=== PATIENT | female | born 1935 | race Caucasian/White ===

== ENCOUNTER 2018-06-21 15:26 | Emergency (ER) | payer MEDICARE ==
[2018-06-21 15:55] VITALS: BP 158/60
[2018-06-21] MEDS ORDERED: Acetaminophen TAB* 325 MG PO ONE (15:59)
--- NOTE | 2018-06-21 16:07 | UC ---
Shoulder Pain HPI - HPI Summary HPI Summary: C/O right shoulder pain after falling. Was holding onto railing and let go with left hand and fell to the right, landing on the right arm. - History of Current Complaint Chief Complaint: UCUpperExtremity Stated Complaint: RIGHT SHOULDER INJURY Time Seen by Provider: 06/21/18 15:53 Hx Obtained From: Patient Hx Last Menstrual Period: n/a Onset/Duration: Sudden Onset Timing: Constant Severity Initially: Severe Severity Currently: Severe Location Of Pain: Is Discrete @ - right shoulder/ upper arm Pain Intensity: 9 Character: Sharp, Aching, Throbbing Aggravating Factor(s): Movement Alleviating Factor(s): Rest Associated Signs And Symptoms: Negative: Weakness, Numbness/Tingling Related History: Dominant Hand Right - Allergies/Home Medications Allergies/Adverse Reactions: Allergies Allergy/AdvReac Type Severity Reaction Status Date / Time NSAIDs avoided AdvReac Unknown Uncoded 06/21/18 15:57 Reaction Details Home Medications: Home Medications Cholecalciferol TAB* [Vitamin D TAB*] 1,000 units PO DAILY 06/21/18 [History Confirmed 06/21/18] Furosemide TAB* [Lasix TAB*] 40 mg PO BID 06/21/18 [History Confirmed 06/21/18] Insulin Glargine,Hum.rec.anlog [Lantus Solostar 5x3 ML PENS] 15 ml SUBCUT DAILY 06/21/18 [History Confirmed 06/21/18] Lidocaine 5 gm TP BID 06/21/18 [History Confirmed 06/21/18] [place]-3 Fatty Acids/Fish Oil [Fish Oil 1,000 mg Capsule] 1,000 mg PO DAILY 06/21 [History Confirmed 06/21/18] Omeprazole CAP* [Prilosec CAP* 20 MG] 20 mg PO DAILY 06/21/18 [History Confirmed 06/21/18] Ropinirole HCl 2 tab PO BEDTIME 06/21/18 [History Confirmed 06/21/18] glipiZIDE [Glipizide ER] 2.5 mg PO DAILY 06/21/18 [History Confirmed 06/21/18] traMADol TAB* [Ultram*] 50 mg PO Q8HR PRN 06/21/18 [History Confirmed 06/21/18] PMH/Surg Hx/FS Hx/Imm Hx Endocrine History: Diabetes, Dyslipidemia Cardiovascular History: Hypertension GI/ History: Gastroesophageal Reflux - Surgical History Surgical History: Yes Surgery Procedure, Year, and Place: BILATERAL KNEE REPLACEMENTS; LEFT SHOULDER ROTATOR CUFF REPAIR - Family History Known Family History: Positive: Cardiac Disease, Hypertension, Diabetes, Other - mom had breast CA - Social History Occupation: Retired Lives: With Family Alcohol Use: None Substance Use Type: None Smoking Status (MU): Never Smoked Tobacco Review of Systems All Other Systems Reviewed And Are Negative: Yes Musculoskeletal: Positive: Arthralgia - right shoulder Is Patient Immunocompromised?: No Physical Exam Triage Information Reviewed: Yes Appearance: Well-Appearing, Well-Nourished, Pain Distress - Mild Vital Signs: Initial Vital Signs Temp 97.6 F 06/21/18 15:49 Pulse 77 06/21/18 15:49 Resp 16 06/21/18 15:49 BP 158/60 06/21/18 15:49 Pulse Ox 98 06/21/18 15:49 Vital Signs Reviewed: Yes Eyes: Positive: Conjunctiva Clear Neck exam: Normal Respiratory Exam: Normal Cardiovascular: Positive: RRR, Murmur:Sys:Grade _?_/ - 2/6 Musculoskeletal: Positive: Strength Limited @ - right shoulder flexion, ROM Limited @ - right shoulder not tested with pain., Other: - tender on the A/C joint and the humeral head. Neurological Exam: Normal Psychological Exam: Normal Skin Exam: Normal Procedures - Joint Reduction Left Joint Reduction Site: shoulder (R) - external rotation technique Conscious Sedation: No Reduction Attempts: 1 Pre-Procedure NV Exam: Yes Post Joint Reduction Film: joint reduced Re-Evaluation - Re-Evaluation First Eval Re-Evaluation Time: 16:55 Change: Improved - Pain and range of motion is better. Shoulder Course/Dx - Differential Dx/Diagnosis Differential Diagnosis/HQI/PQRI: AC Separation, Dislocation, Fracture (Closed), Rotator Cuff Injury Provider Diagnosis: Dislocation of right shoulder joint Discharge - Sign-Out/Discharge Documenting (check all that apply): Patient Departure All imaging exams completed and their final reports reviewed: Yes - Discharge Plan Condition: Stable Disposition: HOME Patient Education Materials: Shoulder Dislocation (ED) Referrals: Peyton Scales MD [Primary Care Provider] - Kang Ingram MD [Medical Doctor] - 4 Days (follow up shoulder dislocation) Additional Instructions: Use the sling for comfort. Increase activity as tolerated. - Billing Disposition and Condition Condition: STABLE Disposition: Home
== END 2018-06-21 17:29 | disposition home or self-care (01) ==
LOC: UCCORT 15:26
DX: S43.004A Unspecified dislocation of right shoulder joint, initial encounter (principal); W19.XXXA Unspecified fall, initial encounter; Y92.9 Unspecified place or not applicable
CPT/HCPCS: 23650; 99213; A9270-GY; G0463

== ENCOUNTER 2018-08-20 05:43 | Inpatient (IN) | payer MEDICARE ==
--- NOTE | 2018-08-14 16:58 | HP ---
PREOPERATIVE HISTORY AND PHYSICAL: DATE OF ADMISSION/SURGERY: 08/20/18 DATE OF OFFICE VISIT: 08/14/18 ATTENDING SURGEON: Dr. John Nye.* (DICTATED BY LESLIE MARTINEZ) PROCEDURE: Right total shoulder reverse. CHIEF COMPLAINT: Right shoulder pain. HISTORY OF PRESENT ILLNESS: Tiarra is an 83-year-old female who presents to the clinic with right shoulder pain due to [id number] glenohumeral joint osteoarthritis as well as rotator cuff tearing. She has failed conservative measures and therefore agreed to undergo a right total shoulder reverse with Dr. Nye on 08/20/18. PAST MEDICAL HISTORY: Hypertension, diabetes, osteoarthritis, high cholesterol , stage 3 kidney disease, macular degeneration, carotid artery stenosis, osteopenia, thyroid cyst, chronic leg tremors, and dysphagia. PAST SURGICAL HISTORY: Left shoulder surgery, left knee scope, bilateral knee replacements, and tonsillectomy. The patient denies prior complications with anesthesia. MEDICATIONS: 1. Glipizide ER 2.5 mg 1 by mouth daily. 2. Lipitor 80 mg 1 by mouth at bedtime. 3. Cyclobenzaprine 10 mg 1 by mouth 3 times a day as needed. 4. Lisinopril 2.5 mg 1 by mouth daily. 5. Furosemide 40 mg 1 by mouth daily. 6. Aspirin 81 mg 1 by mouth every day. 7. Vitamin D 1000 units 1 by mouth daily. 8. Fish oil 1000 mg 1 by mouth twice a day. 9. Ropinirole 0.25 mg 2 tablets by mouth at bedtime. 10. Lantus SoloSTAR 100 units per mL sliding scale 3 times a day. 11. Omeprazole 20 mg 1 by mouth every day. 12. Tramadol 50 mg 1 by mouth every 8 hours as needed for pain. 13. Lidocaine 5% apply 2 g to hip twice a day. ALLERGIES: No known drug allergies. FAMILY HISTORY: Cancer. Denies family history of DVT or PE. SOCIAL HISTORY: She is a former smoker, quit when she was a teenager. She denies alcohol or illegal drug use. REVIEW OF SYSTEMS: A 14-point review of systems was reviewed with the patient. Positive for current complaint, otherwise negative. Denies fever, chills, chest pain, shortness of breath, history of bleeding disorder, history of DVT or PE. Denies history of MRSA. PHYSICAL EXAMINATION GENERAL: An 83-year-old well-developed, well-nourished female, in no acute distress. VITAL SIGNS: Height 58, weight 169, pulse 74, blood pressure 126/70, respiratory rate 20, BMI 35.3. HEENT: Normocephalic, atraumatic. PERRLA. Throat clear. NECK: Supple. PULMONARY: Lungs are clear to auscultation bilaterally. No wheezing, rhonchi, or rales. CARDIO: Regular rate and rhythm. S1, S2. No murmurs, gallops, or rubs. No edema. ABDOMEN: Positive bowel sounds. Soft, nontender. NEURO: Alert and oriented x3. Cranial nerves grossly intact. MUSCULOSKELETAL: Right upper extremity: Skin is intact. No warmth or erythema. Forward flexion to 130, abduction to 80, external rotation to 40, internal rotation to lateral hip. Full range of motion of the elbow, wrist, and hand. +4/5 strength to rotator cuff testing with pain. Positive impingement, Speed, Bullock-Rafa, [place]. +2 radial pulse. Sensation intact to light touch distally. DIAGNOSTIC STUDIES: CT of the right shoulder revealed [id number] glenohumeral joint osteoarthritis and rotator cuff tearing. IMPRESSION: Right shoulder severe glenohumeral joint osteoarthritis and rotator cuff tear. PLAN: The patient is scheduled to undergo a right total shoulder reverse with Dr. Nye on 08/20/18. She will follow up 10 to 14 days postop for followup and suture removal. Percocet will be used for postop pain medication. She has been cleared by her primary care physician on 08/08/18 and is ready to undergo surgery. LESLIE MARTINEZ [id number]/[facility] #: [id number] [facility]
[~2018-08-20 05:43] MED LIST: Buffered Lidocaine 1% SYRIN* 1 ML/SYRINGE INTRADERM ONE
--- OUTSIDE RECORDS SUMMARY | 2018-08-20 05:46 | XMS REPORT | Continuity of Care Document ---
:1935 External Reference #:[id number] Author Name Peyton Scales MD Address [address] [place] [place] [address] Care Team Providers Name Role Phone Peyton Scales MD Care Team Information [employer] Unavailable Peyton Scales MD Primary Care Physician Unavailable Payers Date Identification Numbers Payment Provider Subscriber Effective: 2001 Policy Number: [id number] Medicare Tiarra Christensen PayID: [id number] [address] [place] [address] Policy Number: [id number] [facility] Tiarra Christensen PayID: [id number] [address] [place] [address] Expires: 2017 Policy Number: [facility] Tiarra Christensen [id number] PayID: [id number] [address] [place] [address] Advance Directives Description No Information Available Problems Date Description Provider Status Onset: 05/10/2016 Chronic kidney disease stage 3 Peyton Scales MD Active Onset: 05/10/2016 Closed fracture of thoracic vertebra Peyton Scales MD Active without spinal cord injury Onset: 01/25/2017 Dysphagia Hair Davis MD Active Onset: 01/25/2017 History of polyp of colon Hair Davis MD Active Onset: 02/13/2017 Prosthetic arthroplasty of shoulder Devon Bates M.D. 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 Onset: 09/18/2017 Mixed hyperlipidemia Peyton Scales MD Active Onset: 09/18/2017 Essential tremor Peyton Scales MD Active Onset: 12/04/2017 Lumbosacral spondylosis without Peyton Scales MD Active myelopathy Onset: 12/04/2017 Non-toxic nodular goiter Peyton Scales MD Active Onset: 12/04/2017 Carotid artery occlusion Peyton Scales MD Active Onset: 12/04/2017 Heart murmur Peyton Scales MD Active Onset: 05/10/2016 Abnormal involuntary movement Peyton Scales MD Inactive Inactive: 12/04/2017 Onset: 05/10/2016 Essential hypertension Peyton Scales MD Inactive Inactive: 12/04/2017 Onset: 05/10/2016 Type 2 diabetes mellitus Peyton Scaels MD Inactive Inactive: 12/04/2017 Onset: 05/10/2016 Hyperlipidemia Peyton Scales MD Inactive Inactive: 12/04/2017 Onset: 06/22/2003 Surgical suture Resolved Resolved: 12/04/2017 Onset: 06/22/2003 Closed fracture proximal humerus, greater tuberosity Resolved Resolved: 12/04/2017 Onset: 12/12/2016 Shoulder joint pain Devon Bates M.D. Resolved Resolved: 12/04/2017 Onset: 12/12/2016 Traumatic arthropathy of the shoulder Devon Bates M.D. 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 Resolved: 12/04/2017 Family History Date Family Member(s) Observation Comments General Non Contributory : (age 71 Years) Father due to Kidney Disease Father Stroke : (age 61 Years) Mother due to Breast Cancer Mother Breast Cancer Children 7 all living Siblings 3 : (age 76 Years) First Brother due to Cancer First Brother Diabetes First Brother Leukemia Second Brother Diabetes Second Brother Leukemia Social History Type Date Description Comments Sex Unknown Marital Status Lives With Senior Housing Lives With Son Home Environment Lives With Son Diet Patient is on a diabetic diet Occupation Retired Work Status Retired ADL's/IADL's Dependent with all ADL's Tobacco Use Start: Unknown Never Smoked Cigarettes Smokeless Tobacco Never Used Smokeless Tobacco ETOH Use Denies alcohol use Tobacco Use Start: Unknown Patient has never smoked Recreational Drug Use Denies Drug Use Smoking Status Reviewed: 08/08/18 Patient has never smoked Allergies, Adverse Reactions, Alerts Description No Known Drug Allergies Medications Medication Date Status Form Strength Qnty SIG Indications Ordering Provider Tramadol HCL 09/19/19 Active Tablets 50mg 90tab take one Gagen, 18 s tablet by Malena mouth every 8 e, MS, 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 CN Reference # [id number] Omeprazole 08/21/19 Active Capsules 20mg 90cap 1 tab by [email or web address] Arndt 18 DR s mouth every MD Ryan day every morning Caretouch 05/21/20 Active Misc Twist 33 100un use to check Yordy, Twist Lancets 17 its fs and twice MD Peyton 33G a day True Metrix 05/21/20 Active Kit w/Device 2unit Use to BS as E08.21 Litvin, Go Blood 17 s ordered Maureen, Glucose Meter M.D. Pen [place] 02/20/20 Active Misc 31G X 8 100un use with Litalycia, 11/13" 17 mm its insulin Maureen, device as M.D. directed Lantus 02/19/20 Active Solution 100Unit/M 15ml 30 units E08.21 Litalycia Solostar 17 Pen-Injec L subcutaneous Maureen, t every day M.D. True Metrix 01/25/20 Active Strips 100un test E08.21 Gagen, Self 17 its three-four Malena Monitoring times a day e, MS, Blood Glucose [employer]OLOGY LECTURER-C, Strips CNM Atorvastatin 01/24/20 Active Tablets 80mg 90tab 1 by mouth Gagen, Calcium 17 s tab daily Malena e, MS, BIOLOGY LECTURER-C, CNM BD Insulin 05/29/20 Active Misc 30G X 100un administer Yordy, Syringe/U-100 16 1/2" 0.5 its insulin as MD Peyton /0.5ML/30G X ML directed 1/2" Lisinopril Active Tablets 2.5mg 30tab 1 tab by Mike, 00 s mouth every Andras, day M.D. Furosemide Active Tablets 40mg 90tab 1 po bid Unknown 00 s Baby Aspirin Active Chewtabs 81mg 1 po qd Unknown 00 Vitamin D Active Tablets 1000Unit 1 tab two Unknown 00 times daily. Fish Oil Active Capsules 1000mg 1 every day Unknown 00 Ropinirole Active Tablets 0.25mg 180ta 2 tab by Gagsatya HCL 00 bs mouth at [facility] bedtime e, MS, BIOLOGY LECTURER-C, CNM Lidocaine 12/05/19 Hx Ointment 5% 100gm apply 2 grams Yordy, 18 - two times MD Peyton 08/08/19 once in 19 morning and once in evening on hip areas Glipizide ER 05/21/20 Hx Tablets 2.5mg 90tab 1 by mouth E08.21 Kade 17 - ER 24HR s every day [facility] 08/08/19 e, MS, 19 BIOLOGY LECTURER-C, CNM Omeprazole 01/26/20 Hx Capsules 40mg 30cap 1 tab by R13.10 Hair 17 - s mouth every MD Ryan 09/19/19 day every 18 morning Oxycodone HCL 01/08/20 Hx Tablets 10mg 40tab 1 by mouth M12.512 Paulo 17 - s mario 4-6 Devon, 02/19/20 hour as Lloyd 17 needed postop pain Sure Comfort 10/22/19 Hx 0.5ml 100un Administer Yordy 17 - its Insulin as MD Peyton 01/08/20 Directed 17 Gabapentin 02/08/20 Hx Capsules 100mg 270ca 1 by mouth M62.830 Joshua 16 - ps three times a Mehul Limon, 12/13/19 day DO 17 Home Care 02/03/20 Hx please M17.10 [facility] 16 - evaluate for MD Peyton Unknown PT/OT W18.30xA M54.5 Ropinirole HCL 02/02/2016 - Hx Tablets 0.25mg 30tabs one 2 Yordy, 12/12/2016 hours MD Peyton before bedtime Tizanidine HCL 01/31/2016 - Hx Tablets 2mg 60tabs 1 tab by Yordy, 02/09/2016 mouth two MD Peyton times a day as needed for muscle spasm/pain Cyclobenzaprine HCL 01/30/2016 - Hx Tablets 10mg 90tabs 1 by mouth Yordy, Unknown three MD Peyton times a day as needed muscle spasms Tramadol HCL 01/07/2012 - Hx Tablets 50mg 50tabs 1 tab tid Elizabeth, Luther Merrill MD [place] - Hx Tablets 5-10mg po qd Unknown 11/20/2013 Zetia - Hx Tablets 10mg 90tabs 1 po qd Unknown Unknown Alendronate Sodium - Hx Tablets 35mg 1 po qweek Unknown 11/20/2013 Avastin - Hx Solution 100mg/4ML right Unknown 11/20/2013 eye/shot Humulin R - Hx Solution 100Unit/M sliding Unknown Unknown L scale Glipizide - Hx Tablets 5mg 90tabs 1 by mouth Yordy, Unknown every day MD Peyton Lipitor - Hx Tablets 80mg 90tabs 1 tab by Yordy, 02/09/2016 mouth MD Peyton every night Glucosamine - Hx Capsules 250-200mg Unknown Chondroitin Unknown Humulin N - Hx Suspension 100Unit/M 30ml 24 units Yordy, Unknown L every MD Peyton morning & 20 units every night Cyclobenzaprine HCL - Hx Tablets 5mg 1 by mouth Unknown 01/30/2016 three times a day as needed muscle spasm Oxycodone-Acetamino - Hx Tablets 2.5-325mg Unknown phen Unknown Atorvastatin - Hx Tablet 1 po qd Unknown Calcium 01/23/2017 Tizanidine HCL - Hx Tablets 2mg Unknown 12/12/2016 Oxycodone-Acetamino - Hx Tablets 2.5-325mg Unknown phen 12/12/2016 Gabapentin - Hx Capsules 100mg Unknown 01/07/2017 Tizanidine HCL - Hx Tablets 2mg Unknown 01/07/2017 Oxycodone-Acetamino - Hx Tablets 2.5-325mg Unknown phen 01/07/2017 Oxycodone HCL - Hx Tablets 10mg Unknown Unknown Tramadol - Hx Tablets 37.5-325m 60tabs take one Yordy, Hydrochloride/Aceta 09/18/2017 g tablet by MD Peyton minophen mouth every 12 hours (maximum daily dose=2) Immunizations CPT Code Status Date Vaccine Lot # [id number] Given 03/05/2018 Influenza High Dose [id number] Vital Signs Date Vital Result Comment 08/08/2018 12:54pm BP Systolic Sitting Left Arm 132 mmHg BP Diastolic Sitting Left Arm 68 mmHg Body Temperature 99.4 F Heart Rate 69 /min reg Respiratory Rate 18 /min Height 57 inches 4'9" Weight 171.00 lb BMI (Body Mass Index) 37.0 kg/m2 BSA (Body Surface Area) 1.68 m2 [place] body weight in kilograms 45 kg O2 % BldC Oximetry 96 % ra 03/05/2018 2:54pm BP Systolic Sitting Left Arm 134 mmHg BP Diastolic Sitting Left Arm 68 mmHg Body Temperature 99.2 F Arthur 98.4 Heart Rate 52 /min reg Respiratory Rate 18 /min Height 57 inches 4'9" Weight 180.00 lb BMI (Body Mass Index) 38.9 kg/m2 BSA (Body Surface Area) 1.72 m2 [place] body weight in kilograms 45 kg O2 % BldC Oximetry 95 % ra 02/19/2018 3:36pm BP Systolic Sitting Left Arm 145 mmHg BP Diastolic Sitting Left Arm 83 mmHg Heart Rate 57 /min Respiratory Rate 18 /min Height 57 inches 4'9" Weight 181.00 lb BMI (Body Mass Index) 39.2 kg/m2 BSA (Body Surface Area) 1.72 m2 [place] body weight in kilograms 45 kg O2 % BldC Oximetry 97 % 12/04/2017 2:59pm BP Systolic Sitting Right Arm 152 mmHg 120/62 manual cuff. BP Diastolic Sitting Right Arm 77 mmHg 120/62 manual cuff. BP Systolic Sitting Left Arm 112 mmHg manual cuff. BP Diastolic Sitting Left Arm 60 mmHg manual cuff. Body Temperature 98.4 F Heart Rate 59 /min Height 57 inches 4'9" Weight 182.00 lb BMI (Body Mass Index) 39.4 kg/m2 BSA (Body Surface Area) 1.73 m2 [place] body weight in kilograms 45 kg O2 % BldC Oximetry 98 % ra 09/18/2017 1:04pm BP Systolic Sitting Right Arm 146 mmHg BP Diastolic Sitting Right Arm 75 mmHg Heart Rate 60 /min Respiratory Rate 12 /min Height 57 inches 4'9" Weight 188.00 lb BMI (Body Mass Index) 40.7 kg/m2 BSA (Body Surface Area) 1.75 m2 [place] body weight in kilograms 45 kg 08/21/2017 3:37pm BP Systolic Sitting Left Arm 136 mmHg BP Diastolic Sitting Left Arm 78 mmHg Heart Rate 59 /min Respiratory Rate 16 /min Height 57 inches 4'9" Weight 187.00 lb BMI (Body Mass Index) 40.5 kg/m2 BSA (Body Surface Area) 1.75 m2 [place] body weight in kilograms 45 kg 07/17/2017 12:57pm BP Systolic 137 mmHg BP Diastolic 69 mmHg Body Temperature 86.7 F Heart Rate 50 /min Respiratory Rate 16 /min Height 57 inches 4'9" Weight 187.00 lb BMI (Body Mass Index) 40.5 kg/m2 BSA (Body Surface Area) 1.75 m2 [place] body weight in kilograms 45 kg 06/19/2017 1:57pm BP Systolic Sitting Left Arm 119 mmHg BP Diastolic Sitting Left Arm 62 mmHg Heart Rate 53 /min Respiratory Rate 16 /min Height 57 inches 4'9" Weight 186.00 lb BMI (Body Mass Index) 40.2 kg/m2 BSA (Body Surface Area) 1.74 m2 [place] body weight in kilograms 45 kg 05/22/2017 3:59pm BP Systolic Sitting Left Arm 124 mmHg BP Diastolic Sitting Left Arm 80 mmHg Heart Rate 64 /min Respiratory Rate 16 /min Height 57 inches 4'9" Weight 185.00 lb BMI (Body Mass Index) 40.0 kg/m2 BSA (Body Surface Area) 1.74 m2 [place] body weight in kilograms 45 kg 05/21/2017 10:06am BP Systolic 138 mmHg BP Diastolic 70 mmHg Height 57 inches 4'9" Weight 187.50 lb BMI (Body Mass Index) 40.6 kg/m2 BSA (Body Surface Area) 1.75 m2 [place] body weight in kilograms 45 kg 02/18/2017 10:18am BP Systolic 98 mmHg BP Diastolic 66 mmHg Height 57 inches 4'9" Weight 184.00 lb BMI (Body Mass Index) 39.8 kg/m2 BSA (Body Surface Area) 1.74 m2 [place] body weight in kilograms 45 kg 2017 9:53am BP Systolic 132 mmHg BP Diastolic 80 mmHg Height 57 inches 4'9" Weight 188.00 lb BMI (Body Mass Index) 40.7 kg/m2 BSA (Body Surface Area) 1.75 m2 [place] body weight in kilograms 45 kg 01/25/2017 11:42am BP Systolic Sitting Left Arm 122 mmHg BP Diastolic Sitting Left Arm 78 mmHg Heart Rate 56 /min Respiratory Rate 16 /min Height 57 inches 4'9" Weight 189.00 lb BMI (Body Mass Index) 40.9 kg/m2 BSA (Body Surface Area) 1.76 m2 [place] body weight in kilograms 45 kg 01/23/2017 9:16am BP Systolic Sitting Right Arm 132 mmHg BP Diastolic Sitting Right Arm 61 mmHg Body Temperature 97.6 F Heart Rate 55 /min Respiratory Rate 16 /min Height 57 inches 4'9" Weight 192.00 lb BMI (Body Mass Index) 41.5 kg/m2 BSA (Body Surface Area) 1.77 m2 [place] body weight in kilograms 45 kg O2 Saturation Level with Exercise 97 % 01/08/2017 12:59pm BP Systolic Sitting Left Arm 162 mmHg Arthur 110/72 BP Diastolic Sitting Left Arm 70 mmHg Arthur 110/72 Body Temperature 96.7 F Heart Rate 66 /min Height 57 inches 4'9" Weight 185.00 lb BMI (Body Mass Index) 40.0 kg/m2 BSA (Body Surface Area) 1.74 m2 [place] body weight in kilograms 45 kg O2 % BldC Oximetry 97 % 01/07/2017 10:22am BP Systolic Sitting Right Arm 144 mmHg BP Diastolic Sitting Right Arm 75 mmHg Heart Rate 48 /min Height 57 inches 4'9" Weight 189.00 lb BMI (Body Mass Index) 40.9 kg/m2 BSA (Body Surface Area) 1.76 m2 [place] body weight in kilograms 45 kg 12/03/2016 3:04pm BP Systolic Sitting Left Arm 134 mmHg BP Diastolic Sitting Left Arm 78 mmHg Heart Rate 60 /min Height 57.5 inches 4'9.50" Weight 184.00 lb BMI (Body Mass Index) 39.1 kg/m2 BSA (Body Surface Area) 1.75 m2 [place] body weight in kilograms 45 kg 11/12/2016 11:23am BP Systolic Sitting Left Arm 132 mmHg BP Diastolic Sitting Left Arm 80 mmHg Body Temperature 98.0 F Heart Rate 64 /min Respiratory Rate 18 /min Height 59 inches 4'11" Weight 181.00 lb BMI (Body Mass Index) 36.6 kg/m2 BSA (Body Surface Area) 1.77 m2 [place] body weight in kilograms 45 kg O2 % BldC Oximetry 98 % 09/17/2016 2:24pm BP Systolic 102 mmHg BP Diastolic 70 mmHg Heart Rate 64 /min Height 59 inches 4'11" Weight 178.00 lb BMI (Body Mass Index) 35.9 kg/m2 BSA (Body Surface Area) 1.76 m2 05/10/2016 1:16pm BP Systolic Sitting Right Arm 132 mmHg BP Diastolic Sitting Right Arm 76 mmHg Heart Rate 82 /min Height 59 inches 4'11" Weight 189.06 lb BMI (Body Mass Index) 38.2 kg/m2 BSA (Body Surface Area) 1.80 m2 O2 % BldC Oximetry 94 % 02/10/2016 9:24am BP Systolic 121 mmHg BP Diastolic 78 mmHg Heart Rate 80 /min Height 59 inches 4'11" Weight 187.00 lb BMI (Body Mass Index) 37.8 kg/m2 BSA (Body Surface Area) 1.79 m2 [place] body weight in kilograms 45 kg 02/08/2016 8:52am BP Systolic 168 mmHg BP Diastolic 86 mmHg Heart Rate 72 /min Height 58.5 inches 4'10.50" Weight 187.00 lb BMI (Body Mass Index) 38.4 kg/m2 BSA (Body Surface Area) 1.78 m2 01/30/2016 9:44am BP Systolic 144 mmHg BP Diastolic 70 mmHg Heart Rate 84 /min Height 58.5 inches 4'10.50" Weight 193.00 lb with Cam walker BMI (Body Mass Index) 39.6 kg/m2 BSA (Body Surface Area) 1.81 m2 11/18/2013 2:01pm BP Systolic Sitting Right Arm 122 mmHg BP Diastolic Sitting Right Arm 78 mmHg Height 58.5 inches 4'10.50" Weight 188.00 lb BMI (Body Mass Index) 38.6 kg/m2 BSA (Body Surface Area) 1.79 m2 11/19/2012 2:36pm Height 58 inches 4'10" Weight 192.00 lb 11/13/2011 10:30am Height 57.5 inches 4'9.50" Weight 191.00 lb 11/23/2010 8:31am BP Systolic Sitting Right Arm 107 mmHg BP Diastolic Sitting Right Arm 58 mmHg Heart Rate 53 /min Respiratory Rate 16 /min Height 60 inches 5'0" Weight 182.00 lb BMI (Body Mass Index) 35.5 kg/m2 Results Test Date Facility Test Result H/L Range Note Urine Dipstick 08/08/2018 [facility] Ua Color yelow Yellow Ua Clarity clear Clear Ua Leuko 1+ High Negative Ua Nitrite negative Negative Ua Urobilinogen negative Low 0.2 - 1.0 E.U./dL Ua Protein negative Negative Ua PH 6.0 Low 6.5-7.5 Ua Blood negative Negative Ua Specific [place] 1.020 1.010-1.030 Ua Ketones negative Negative Ua Bilirubin negative Negative Ua Glucose negative Negative Comprehensive Metabolic 06/30/2018 [facility] Glucose 78 mg/dL N 74-106 1 Panel [address] [place] [address] [phone] BUN 28 mg/dL High 7-18 Creatinine 1.7 mg/dL High 0.6-1.3 Glom Filtration Rate, Estimate 31 mL/min >60 If 37 mL/min >60 2 BUN/Creat 16.4 ratio Sodium 144 mmol/L N 136-145 Potassium 4.1 mmol/L N 3.5-5.1 Chloride 105 mmol/L N 98-107 Carbon Dioxide 33 mmol/L High 21-32 Anion Gap 6 mEq/L Low 8-16 Calcium 9.1 mg/dL N 8.5-10.1 Total Protein 7.8 g/dL N 6.4-8.2 Albumin 3.1 g/dL Low 3.4-5.0 Globulin 4.7 g/dL High 1.9-4.3 Alb/Glob 0.7 ratio Bilirubin,Total 0.5 mg/dL N 0.2-1.0 Sgot/Ast 17 U/L N 15-37 SGPT/Alt 17 U/L N 12-78 Alkaline Phosphatase 121 U/L High 45-117 LDL Cholesterol Profile 06/30/2018 [facility] Cholesterol 137 mg/dL <200 3 [address] [place], [place] [id number] [phone] Triglycerides 104 mg/dL <150 4 HDL Cholesterol 47 mg/dL >40 5 LDL-Cholesterol 69 mg/dL < 100 6 CBC W/Automated Diff 06/30/2018 [facility] White Blood 8.1 K/uL N 3.1-10.[address] [place] [address] [phone] Red Blood Count 4.37 M/uL N 3.90-5.40 Hemoglobin 12.8 gm/dL N 11.6-15.8 Hematocrit 39.3 % N 36.0-46.1 Mean Cell Volume 89.9 fl N 80.9-99.0 Mean Corpuscular HGB 29.3 pg N 25.9-32.7 Mean Corpuscular HGB Conc 32.6 g/dL N 30.8-34.3 Platelet Count 296 K/uL N 155-360 Red Cell Distri Width SD 50.4 fl High 36-47 Red Cell Distri Width %CV 15.6 % High 11.7-14.4 Mean Platelet Volume 9.4 fL N 8.9-12.4 Neut% 63.9 % N 40.4-72.8 Lymph % 23.9 % N 20.0-42.0 [place] % 8.3 % N 4.3-13.2 Eo% 3.0 % N 0.0-6.6 Bas% 0.9 % N 0.0-1.1 Neut# 5.19 K/uL N 1.8-7.0 Lymph # 1.94 K/uL N 1.0-4.0 [place] # 0.67 K/uL N 0.3-0.9 Eos # 0.24 K/uL N 0.0-0.5 Baso # 0.07 K/uL N 0.0-0.1 Laboratory test 06/30/2018 [facility] Vitamin 40.4 30.0-100.0 [address] D,25-Hydroxy ng/[place] [address] [phone] Glycohemoglobin 06/30/2018 [facility] Glycohemoglobin 7.2 % High 4.2-6.[address] (A1c) [place] [address] [phone] eAG 160 mg/dL LDL Cholesterol 02/25/2018 [facility] Cholesterol 135 mg/dL <200 9, [address] [place] [address] [phone] Triglycerides 103 mg/dL <150 11 HDL Cholesterol 41 mg/dL >40 12 LDL-Cholesterol 73 mg/dL < 100 13 Glycohemoglobin 02/25/2018 [facility] Glycohemoglobin 7.9 % High 4.2-6.3 14 A1c [address] [facility] (A1c) [place] [address] [phone] eAG 180 mg/dL Laboratory test 02/25/2018 [facility] Thyroid Stim 4.11 uIU/mL N 0.30-4.20 finding [address] [facility] [place] [address] [phone] Free T4 1.01 ng/dL N 0.76-1.46 LDL Cholesterol 09/25/2017 [facility] Cholesterol 159 mg/dL <200 15, 16 Profile [address] [place] [address] [phone] Triglycerides 111 mg/dL <150 17 HDL Cholesterol 50 mg/dL >40 18 LDL-Cholesterol 87 mg/dL < 100 19 Ua RFX Micro & Culture 06/19/2017 [facility] Urine Color YELLOW Yellow 20 II [address] [place] [address] [phone] Urine Clarity CLEAR Clear Urine Glucose - Dipstick NEGATIVE mg/dL Negative Urine Bilirubin - Dipstick NEGATIVE Negative Urine Ketone NEGATIVE mg/dL Negative Urine Specific [place] 1.010 N 1.010-1.030 Urine Blood NEGATIVE Negative Urine PH 5.0 Low 6.5-7.5 Urine Protein - Dipstick NEGATIVE mg/dL Negative Urine Urobilinogen - Dipstick 0.2 E.U./dL N 0.2-1.0 Urine Nitrite - Dipstick NEGATIVE Negative Urine Leuk Esterase NEGATIVE Negative Source: URINE, CLEAN CAT <SEE NOTE> 21 Urine Culture 06/19/2017 [facility] Urine Culture URETHRAL VERNON [address] [place] [address] [phone] Quantity 10,000 - 50,000 <SEE NOTE> 22 Hgb Bld-mCnc 01/16/2017 N2N/CCD Import Hgb Bld-mCnc 10.1 Low 11.6-15.8 MCH RBC Qn Auto 01/16/2017 N2N/CCD Import MCH RBC Qn Auto 30.3 25.9- 32.7 MCHC RBC 01/16/2017 N2N/CCD Import MCHC RBC 32.6 30.8-34.3 Auto-mCnc Auto-mCnc MCV RBC Auto 01/16/2017 N2N/CCD Import MCV RBC Auto 93.1 80.9-99.0 PMV Bld Auto 01/16/2017 N2N/CCD Import PMV Bld Auto 10.3 8.9-12.4 Platelets 01/16/2017 N2N/CCD Import Platelets 234 150-400 [#/volume] in [#/volume] in Blood by Blood by Automated count Automated count Potassium 01/16/2017 N2N/CCD Import Potassium 4.5 3.5-5.1 SerPl-sCnc SerPl-sCnc RBC # Bld Auto 01/16/2017 N2N/CCD Import RBC # Bld Auto 3.33 Low 3.90- 5.40 RDW RBC Auto-Rto 01/16/2017 N2N/CCD Import RDW RBC Auto-Rto 14.2 11.7- 14.4 Sodium SerPl-sCnc 01/16/2017 N2N/CCD Import Sodium 140 136-145 SerPl-sCnc WBC # Bld Auto 01/16/2017 N2N/CCD Import WBC # Bld Auto 6.5 # 3.1-10.7 Anion Gap 01/16/2017 N2N/CCD Import Anion Gap 7 Low 8-16 SerPl-sCnc SerPl-sCnc CBC 01/16/2017 [facility] White Blood 6.5 K/uL 3.1-10.[address] Count [place], [place] [id number] [phone] Red Blood Count 3.33 M/uL Low 3.90-5.40 Hemoglobin 10.1 gm/dL Low 11.6-15.8 Hematocrit 31.0 % Low 36.0-46.1 Mean Cell Volume 93.1 fl N 80.9-99.0 Mean Corpuscular HGB 30.3 pg N 25.9-32.7 Mean Corpuscular HGB Conc 32.6 g/dL N 30.8-34.3 Platelet Count 234 K/uL N 150-400 Red Cell Distri Width %CV 14.2 % N 11.7-14.4 Mean Platelet Volume 10.3 fL N 8.9-12.4 Basic Metabolic Panel 01/16/2017 [facility] Glucose 246 mg/dL High 74-[address] [place], [place] [id number] [phone] BUN 34 mg/dL High 7-18 Creatinine 2.0 mg/dL High 0.6-1.3 Glom Filtration Rate, Estimate 26 mL/min >60 If 31 mL/min >60 24 BUN/Creat 17.0 ratio Sodium 140 mmol/L N 136-145 Potassium 4.5 mmol/L N 3.5-5.1 Chloride 104 mmol/L N 98-107 Carbon Dioxide 29 mmol/L N 21-32 Anion Gap 7 mEq/L Low 8-16 Calcium 8.6 mg/dL N 8.5-10.1 Glycohemoglobin 01/16/2017 [facility] Glycohemoglobin 6.7 % High 4.2-6.[address] (A1c) [place] [address] [phone] eAG 146 mg/dL Capillary blood 01/16/2017 N2N/CCD Import Capillary blood 235 High 70- 110 glucose measurement glucose measurement by glucometer by glucometer (mass/volume) BUN SerPl-mCnc 01/16/2017 N2N/CCD Import BUN SerPl-mCnc 34 High 7-18 BUN/Creat SerPl 01/16/2017 N2N/CCD Import BUN/Creat SerPl 17.0 Blood glucose mean 01/16/2017 N2N/CCD Import Blood glucose mean 146 value measurement value measurement estimated fro estimated from glycated hemoglobin (mass/volume) Co2 SerPl-sCnc 01/16/2017 N2N/CCD Import Co2 SerPl-sCnc 29 21-32 Calcium SerPl-mCnc 01/16/2017 N2N/CCD Import Calcium SerPl-mCnc 8.6 8.5- 10.1 Chloride SerPl-sCnc 01/16/2017 N2N/CCD Import Chloride SerPl-sCnc 104 98 -107 Creat SerPl-mCnc 01/16/2017 N2N/CCD Import Creat SerPl-mCnc 2.0 High 0.6- 1.3 GFR/Bsa pred.black 01/16/2017 N2N/CCD Import GFR/Bsa pred.black 31 >60 SerPl MDRD-ArVRat SerPl MDRD-ArVRat GFR/Bsa pred.non 01/16/2017 N2N/CCD Import GFR/Bsa pred.non 26 >60 black SerPl black SerPl MDRD-ArVRat MDRD-ArVRat Glucose 01/16/2017 N2N/CCD Import Glucose 246 High 74-106 [Mass/volume] in [Mass/volume] in Serum or Plasma Serum or Plasma Hct VFr Bld Auto 01/16/2017 N2N/CCD Import Hct VFr Bld Auto 31.0 Low 36.0 -46.1 Hgb A1c MFr Bld 01/16/2017 N2N/CCD Import Hgb A1c MFr Bld 6.7 High 4.2- 6.3 Prot SerPl-mCnc 01/15/2017 N2N/CCD Import Prot SerPl-mCnc 6.8 6.4-8.2 Globulin Ser 01/15/2017 N2N/CCD Import Globulin Ser 3.9 1.9-4.3 Calc-mCnc Calc-mCnc Bilirub SerPl-mCnc 01/15/2017 N2N/CCD Import Bilirub SerPl-mCnc 0.5 0.2- 1.0 Aspartate 01/15/2017 N2N/CCD Import Aspartate 26 15-37 aminotransferase aminotransferase [Enzymatic [Enzymatic activity/vol activity/volume] in Serum or Plasma Albumin/Glob SerPl 01/15/2017 N2N/CCD Import Albumin/Glob SerPl 0.7 Albumin SerPl-mCnc 01/15/2017 N2N/CCD Import Albumin SerPl-mCnc 2.9 Low 3.4-5.0 Alt SerPl-cCnc 01/15/2017 N2N/CCD Import Alt SerPl-cCnc 21 12-78 Alp SerPl-cCnc 01/15/2017 N2N/CCD Import Alp SerPl-cCnc 95 45-117 Laboratory test 01/15/2017 [facility] Magnesium 2.2 N 1.8-2.[address] mg/dL [place], [place] [id number] [phone] Comprehensive 01/15/2017 [facility] Glucose 159 High 74-106 Metabolic Panel [address] mg/dL [place], [place] [id number] [phone] BUN 36 mg/dL High 7-18 Creatinine 2.0 mg/dL High 0.6-1.3 Glom Filtration Rate, Estimate 26 mL/min >60 If 31 mL/min >60 26 BUN/Creat 18.0 ratio Sodium 142 mmol/L N 136-145 Potassium 4.1 mmol/L N 3.5-5.1 Chloride 104 mmol/L N 98-107 Carbon Dioxide 28 mmol/L N 21-32 Anion Gap 10 mEq/L N 8-16 Calcium 8.8 mg/dL N 8.5-10.1 Total Protein 6.8 g/dL N 6.4-8.2 Albumin 2.9 g/dL Low 3.4-5.0 Globulin 3.9 g/dL N 1.9-4.3 Alb/Glob 0.7 ratio Bilirubin,Total 0.5 mg/dL N 0.2-1.0 Sgot/Ast 26 U/L N 15-37 SGPT/Alt 21 U/L N 12-78 Alkaline Phosphatase 95 U/L N 45-117 CBC 01/15/2017 [facility] White Blood Count 13.3 K/uL High 3.1-10.7 [address] [place], [place] [id number] [phone] Red Blood Count 3.72 M/uL Low 3.90-5.40 Hemoglobin 11.1 gm/dL Low 11.6-15.8 Hematocrit 34.4 % Low 36.0-46.1 Mean Cell Volume 92.5 fl N 80.9-99.0 Mean Corpuscular HGB 29.8 pg N 25.9-32.7 Mean Corpuscular HGB Conc 32.3 g/dL N 30.8-34.3 Platelet Count 260 K/uL N 150-400 Red Cell Distri Width %CV 14.2 % N 11.7-14.4 Mean Platelet Volume 10.1 fL N 8.9-12.4 Eosinophil # Bld 01/08/2017 N2N/CCD Import Eosinophil # Bld 0.04 0.0- 0.5 Auto Auto Eosinophil/leuk 01/08/2017 N2N/CCD Import Eosinophil/leuk 0.4 0.0-6.6 NFr Bld Auto NFr Bld Auto Inr 01/08/2017 N2N/CCD Import Inr 1.0 0.9-1.1 Lymphocytes 01/08/2017 N2N/CCD Import Lymphocytes 1.35 1.0-4.0 [#/volume] in [#/volume] in Blood by Blood by Automated count Automated count Lymphocytes/leuk 01/08/2017 N2N/CCD Import Lymphocytes/leuk 15.0 Low 20.0 -42.0 NFr Bld Auto NFr Bld Auto Monocytes # Bld 01/08/2017 N2N/CCD Import Monocytes # Bld 0.65 0.3-0.9 Auto Auto Monocytes/leuk 01/08/2017 N2N/CCD Import Monocytes/leuk 7.2 4.3-13.2 NFr Bld Auto NFr Bld Auto Neutrophils # Bld 01/08/2017 N2N/CCD Import Neutrophils # Bld 6.94 1.8- 7.0 Auto Auto Neutrophils/leuk 01/08/2017 N2N/CCD Import Neutrophils/leuk 77.2 High 40.4-72.8 NFr Bld Auto NFr Bld Auto Prothrombin time 01/08/2017 N2N/CCD Import Prothrombin time 13.4 12.0- 14.4 RDW RBC Auto 01/08/2017 N2N/CCD Import RDW RBC Auto 47.0 3-47 Basic Metabolic 01/08/2017 [facility] Glucose 299 mg/dL High 74-[address] [place], [place] [id number] [phone] BUN 58 mg/dL High 7-18 Creatinine 2.2 mg/dL High 0.6-1.3 Glom Filtration Rate, Estimate 23 mL/min >60 If 28 mL/min >60 28 BUN/Creat 26.3 ratio Sodium 137 mmol/L N 136-145 Potassium 4.9 mmol/L N 3.5-5.1 Chloride 98 mmol/L N 98-107 Carbon Dioxide 33 mmol/L High 21-32 Anion Gap 6 mEq/L Low 8-16 Calcium 9.2 mg/dL N 8.5-10.1 CBS W/Automated Diff 01/08/2017 [facility] White Blood 9.0 K/uL N 3.1-10.[address] [place] [address] [phone] Red Blood Count 4.19 M/uL N 3.90-5.40 Hemoglobin 12.6 gm/dL N 11.6-15.8 Hematocrit 38.7 % N 36.0-46.1 Mean Cell Volume 92.4 fl N 80.9-99.0 Mean Corpuscular HGB 30.1 pg N 25.9-32.7 Mean Corpuscular HGB Conc 32.6 g/dL N 30.8-34.3 Platelet Count 281 K/uL N 150-400 Red Cell Distri Width SD 47.0 fl N 3-47 Red Cell Distri Width %CV 14.2 % N 11.7-14.4 Mean Platelet Volume 11.2 fL N 8.9-12.4 Neut% 77.2 % High 40.4-72.8 Lymph % 15.0 % Low 20.0-42.0 [place] % 7.2 % N 4.3-13.2 Eo% 0.4 % N 0.0-6.6 Bas% 0.2 % N 0.0-1.1 Neut# 6.94 K/uL N 1.8-7.0 Lymph # 1.35 K/uL N 1.0-4.0 [place]ford # 0.65 K/uL N 0.3-0.9 Eos # 0.04 K/uL N 0.0-0.5 Baso # 0.02 K/uL N 0.0-0.1 Anticoagulant Therapy? NO Protime 01/08/2017 [facility] Protime 13.4 seconds N 12.0-14.4 [address] [place] [address] [phone] Inr 1.0 N 0.9-1.1 29 Anticoagulant Therapy? NO Act Partial 01/08/2017 [facility] Act Partial 30.8 seconds N 23.4-35.0 Thrombo Time [address] [facility] [place] [address] [phone] Anticoagulant Therapy? NO Urine Culture 01/08/2017 [facility] Urine Culture URETHRAL VERNON [address] [place] [address] [phone] Quantity 10,000 - 50,000 <SEE NOTE> N 30 Ua Routine 01/08/2017 [facility] Urine Color YELLOW Yellow [address] [place] [address] [phone] Urine Clarity CLEAR Clear Urine Glucose - Dipstick NEGATIVE mg/dL Negative Urine Bilirubin - Dipstick NEGATIVE Negative Urine Ketone NEGATIVE mg/dL Negative Urine Specific [place] <=1.005 Low 1.010-1.030 Urine Blood NEGATIVE Negative Urine PH 6.0 Low 6.5-7.5 Urine Protein - Dipstick NEGATIVE mg/dL Negative Urine Urobilinogen - Dipstick 0.2 E.U./dL N 0.2-1.0 Urine Nitrite - Dipstick NEGATIVE Negative Urine Leuk Esterase SMALL Abnormal Negative Urine RBC NONE SEEN rbc/hpf 0-2 Urine WBC 0-2 wbc/hpf 0-7 Urine Epithelial Cells MODERATE /lpf None Seen 31 Urine Bacteria VERY FEW None Seen Urine Hyaline Cast 0-2 #/lpf None Seen Source: URINE, CLEAN CAT <SEE NOTE> 32 Bacteria 01/08/2017 N2N/CCD Import Bacteria Very Few None Seen [Presence] in [Presence] in Urine sediment by Urine sediment by Light nelida Light microscopy Bilirub Ur Ql 01/08/2017 N2N/CCD Import Bilirub Ur Ql Negative Negative Strip.auto Strip.auto Color Ur 01/08/2017 N2N/CCD Import Color Ur Yellow Yellow Epithelial cells 01/08/2017 N2N/CCD Import Epithelial cells Moderate None Seen [Presence] in [Presence] in Urine sediment by Urine sediment by L Light microscopy Erythrocytes 01/08/2017 N2N/CCD Import Erythrocytes None Seen 0-2 [#/area] in Urine [#/area] in Urine sediment by sediment by Microsc Microscopy high power field Ketones Ur 01/08/2017 N2N/CCD Import Ketones Ur Negative Negative Strip.auto-mCnc Strip.auto-mCnc Leukocyte 01/08/2017 N2N/CCD Import Leukocyte Small High Negative esterase Ur Ql esterase Ur Ql Strip.auto Strip.auto Basophils/leuk 01/08/2017 N2N/CCD Import Basophils/leuk 0.2 0.0-1.1 NFr Bld Auto NFr Bld Auto Basophils 01/08/2017 N2N/CCD Import Basophils 0.02 0.0-0.1 [#/volume] in [#/volume] in Blood by Blood by Automated count Automated count Activated partial 01/08/2017 N2N/CCD Import Activated partial 30.8 23.4- 35.0 thromboplastin thromboplastin time (aPTT) in pl time (aPTT) in platelet poor plasma by coagulation assay pH Ur Strip.auto 01/08/2017 N2N/CCD Import pH Ur Strip.auto 6.0 Low 6.5- 7.5 Urobilinogen Ur 01/08/2017 N2N/CCD Import Urobilinogen Ur 0.2 0.2-1.0 Strip-aCnc Strip-aCnc Nitrite Ur Ql 01/08/2017 N2N/CCD Import Nitrite Ur Ql Negative Negative Strip.auto Strip.auto Prot Ur 01/08/2017 N2N/CCD Import Prot Ur Negative Negative Strip.auto-mCnc Strip.auto-mCnc Urine appearance 01/08/2017 N2N/CCD Import Urine appearance Clear Clear determination determination Urine glucose 01/08/2017 N2N/CCD Import Urine glucose Negative Negative measurement by measurement by automated test automated test strip strip (mass/volume) Urine hemoglobin 01/08/2017 N2N/CCD Import Urine hemoglobin Negative Negative detection by detection by automated test automated test strip strip LDL Cholesterol 11/23/2016 [facility] Cholesterol 138 mg/dL <200 33, Profile [address] [place], [place] [id number] [phone] Triglycerides 167 mg/dL High <150 35 HDL Cholesterol 47 mg/dL >40 36 LDL-Cholesterol 58 mg/dL < 100 37 LDLc SerPl Calc-mCnc 11/23/2016 N2N/CCD Import LDLc SerPl 58 < 100 Calc-mCnc Serum or plasma 11/23/2016 N2N/CCD Import Serum or plasma 47 >40 cholesterol in HDL cholesterol in HDL measurement (ma measurement (mass/volume) Serum or plasma 11/23/2016 N2N/CCD Import Serum or plasma 138 <200 cholesterol cholesterol measurement measurement (mass/volu (mass/volume) Serum or plasma 11/23/2016 N2N/CCD Import Serum or plasma 167 High <150 triglyceride triglyceride measurement measurement (mass/vol (mass/volume) Protime 12/17/2011 N2N/CCD Import Inr 1.2 High 0.9-1.1 38 Protime 15.5 s High 12.2-15.2 Laboratory test finding 12/10/2011 N2N/CCD Import Anion Gap 13 mEq/L 8- 16 BUN 23 mg/dL 5-23 BUN/Creat 11.5 ratio Calcium 10.1 mg/dL 8.5-10.1 Carbon Dioxide 29 mEq/L 18-29 Chloride 98 mmol/L 98-107 Creatinine 2.0 mg/dL High 0.5-1.4 Glom Filtration Rate, Estimate 26 mL/min >60 Glucose 88 mg/dL 76-115 If 31 mL/min >60 39 Potassium 3.9 mmol/L 3.5-5.1 Sodium 136 mmol/L 136-145 Protime 12/10/2011 N2N/CCD Import Inr 1.9 High 0.9-1.1 40 Protime 22.1 s High 12.2-15.2 Protime 12/06/2011 N2N/CCD Import Inr 3.6 High 0.9-1.1 41 Protime 37.3 s High 12.2-15.2 Xray 11/28/2010 [facility] - Radiology Cta, Neck, W/ neg bilat [address] & W/[place] [address] [phone] Laboratory test 11/28/2010 [facility] BUN 33 mg/dL High 5-23 [address] [place] [address] [phone] Creatinine 1.6 mg/dL High 0.5-1.4 43 1 N18.3,E78.2,EO8.21 2 Note: Persistent reduction for 3 months or more in an eGFR <60 mL/min/1.73 m2 defines CKD. Patients with eGFR values >/=60 mL/min/1.73 m2 may also have CKD if evidence of persistent proteinuria is present. The original MDRD equation for estimated GFR is not valid for patients less than 18 years of age. Additional information may be found at www.kdoqi.org. 3 Reference Guidelines*: Desirable: ........... < 200 mg/dL Borderline High: ..... 200-239 mg/dL High: ................ >=240 mg/dL * The National Cholesterol Education Program (NCEP) 4 Reference Guidelines*: Normal: ............. < 150 mg/dL Borderline High: .... 150-199 mg/dL High: ............... 200-499 mg/dL Very High: .......... > 500 mg/dL * Source: National Cholesterol Education Program (NCEP) 5 Reference Guidelines*: Low HDL: ..... < 40 mg/dL Normal: ..... 40-60 mg/dL Desirable: ... > 60 mg/dL *The National Cholesterol Education Program(NCEP) 6 Reference Guidelines*: Optimal:........... <100 mg/dL Near Optimal....... 100-129 mg/dL Borderline High.... 130-159 mg/dL High............... 160-189 mg/dL Very High.......... >=190 mg/dL * Source: National Cholesterol Education Program (NCEP) 7 Vitamin D deficiency has been defined by the [place] of [employer] and an Endocrine Society practice guideline as a level of serum 25-OH vitamin D less than 20 ng/mL (1,2). The Endocrine Society went on to further define vitamin D insufficiency as a level between 21 and 29 ng/mL (2). 1. IOM ([place] of [employer]). 2010. Dietary reference intakes for calcium and D. [place]: The National [employer] Press. 2. Sergio MF, Stoney MARQUIS, Omar MON, et al. Evaluation, treatment, and prevention of vitamin D deficiency: an Endocrine Society clinical practice guideline. JCEM. 2010; 96(7):1911-30. Performed at: RN - [facility] [address] [id number] Plastic Surgery Technician: Lyric Myers MD, Phone: [phone] 8 Elevated levels of HbA1c suggest the need for more aggressive treatment of glycemia. The [place] [employer] Association recommends that a primary goal of therapy should be a HbA1c of <7% and that physicians should re-evaluate the treatment regimen in patients with HbA1c values consistently >8%. 9 E78.2 N18.3 I10 E08.21 E04.9 10 Reference Guidelines*: Desirable: ........... < 200 mg/dL Borderline High: ..... 200-239 mg/dL High: ................ >=240 mg/dL * The National Cholesterol Education Program (NCEP) 11 Reference Guidelines*: Normal: ............. < 150 mg/dL Borderline High: .... 150-199 mg/dL High: ............... 200-499 mg/dL Very High: .......... > 500 mg/dL * Source: National Cholesterol Education Program (NCEP) 12 Reference Guidelines*: Low HDL: ..... < 40 mg/dL Normal: ..... 40-60 mg/dL Desirable: ... > 60 mg/dL *The National Cholesterol Education Program(NCEP) 13 Reference Guidelines*: Optimal:........... <100 mg/dL Near Optimal....... 100-129 mg/dL Borderline High.... 130-159 mg/dL High............... 160-189 mg/dL Very High.......... >=190 mg/dL * Source: National Cholesterol Education Program (NCEP) 14 Elevated levels of HbA1c suggest the need for more aggressive treatment of glycemia. The [place] [employer] recommends that a primary goal of therapy should be a HbA1c of <7% and that physicians should re-evaluate the treatment regimen in patients with HbA1c values consistently >8%. 15 E78.2 16 Reference Guidelines*: Desirable: ........... < 200 mg/dL Borderline High: ..... 200-239 mg/dL High: ................ >=240 mg/dL * The National Cholesterol Education Program (NCEP) 17 Reference Guidelines*: Normal: ............. < 150 mg/dL Borderline High: .... 150-199 mg/dL High: ............... 200-499 mg/dL Very High: .......... > 500 mg/dL * Source: National Cholesterol Education Program (NCEP) 18 Reference Guidelines*: Low HDL: ..... < 40 mg/dL Normal: ..... 40-60 mg/dL Desirable: ... > 60 mg/dL *The National Cholesterol Education Program(NCEP) 19 Reference Guidelines*: Optimal:........... <100 mg/dL Near Optimal....... 100-129 mg/dL Borderline High.... 130-159 mg/dL High............... 160-189 mg/dL Very High.......... >=190 mg/dL * Source: National Cholesterol Education Program (NCEP) 20 R82.99 21 URINE, CLEAN CATCH 22 10,000 - 50,000 CFU/mL 23 TOTAL L SHOULDER 24 Note: Persistent reduction for 3 months or more in an eGFR <60 mL/min/1.73 m2 defines CKD. Patients with eGFR values >/=60 mL/min/1.73 m2 may also have CKD if evidence of persistent proteinuria is present. The original MDRD equation for estimated GFR is not valid for patients less than 18 years of age. Additional information may be found at www.kdoqi.org. 25 Elevated levels of HbA1c suggest the need for more aggressive treatment of glycemia. The [place] [employer] recommends that a primary goal of therapy should be a HbA1c of <7% and that physicians should re-evaluate the treatment regimen in patients with HbA1c values consistently >8%. 26 Note: Persistent reduction for 3 months or more in an eGFR <60 mL/min/1.73 m2 defines CKD. Patients with eGFR values >/=60 mL/min/1.73 m2 may also have CKD if evidence of persistent proteinuria is present. The original MDRD equation for estimated GFR is not valid for patients less than 18 years of age. Additional information may be found at www.kdoqi.org. 27 R82.90 I10 E11.9 N18.3 28 Note: Persistent reduction for 3 months or more in an eGFR <60 mL/min/1.73 m2 defines CKD. Patients with eGFR values >/=60 mL/min/1.73 m2 may also have CKD if evidence of persistent proteinuria is present. The original MDRD equation for estimated GFR is not valid for patients less than 18 years of age. Additional information may be found at www.kdoqi.org. 29 THERAPEUTIC INR RANGE: 2.0 - 3.0 DVT, Pulmonary embolus, prophylaxis against venous thrombosis or systemic embolization in high risk patients. 2.5 - 3.5 Mechanical heart valves 30 10,000 - 50,000 CFU/mL 31 POSSIBLE UROGENITAL CONTAMINATION. 32 URINE, CLEAN CATCH 33 E78.5 N18.3 34 Reference Guidelines*: Desirable: ........... < 200 mg/dL Borderline High: ..... 200-239 mg/dL High: ................ >=240 mg/dL * The National Cholesterol Education Program (NCEP) 35 Reference Guidelines*: Normal: ............. < 150 mg/dL Borderline High: .... 150-199 mg/dL High: ............... 200-499 mg/dL Very High: .......... > 500 mg/dL * Source: National Cholesterol Education Program (NCEP) 36 Reference Guidelines*: Low HDL: ..... < 40 mg/dL Normal: ..... 40-60 mg/dL Desirable: ... > 60 mg/dL *The National Cholesterol Education Program(NCEP) 37 Reference Guidelines*: Optimal:........... <100 mg/dL Near Optimal....... 100-129 mg/dL Borderline High.... 130-159 mg/dL High............... 160-189 mg/dL Very High.......... >=190 mg/dL * Source: National Cholesterol Education Program (NCEP) 38 THERAPEUTIC INR RANGE: 2.0 - 3.0 DVT, Pulmonary embolus, prophylaxis against venous thrombosis or systemic embolization in high risk patients. 2.5 - 3.5 Mechanical heart valves 39 Note: Persistent reduction for 3 months or more in an eGFR <60 mL/min/1.73 m2 defines CKD. Patients with eGFR values >/=60 mL/min/1.73 m2 may also have CKD if evidence of persistent proteinuria is present. The original MDRD equation for estimated GFR is not valid for patients less than 18 years of age. Additional information may be found at www.kdoqi.org. 40 THERAPEUTIC INR RANGE: 2.0 - 3.0 DVT, Pulmonary embolus, prophylaxis against venous thrombosis or systemic embolization in high risk patients. 2.5 - 3.5 Mechanical heart valves 41 THERAPEUTIC INR RANGE: 2.0 - 3.0 DVT, Pulmonary embolus, prophylaxis against venous thrombosis or systemic embolization in high risk patients. 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: CALL TO [phone] CALLED ARIAN Munguia AT 1047 11/28/10 by LAB.SANDIE QUERY: @EMR Pat ID: QUERY: @EMR Req #: Procedures Date Code Description Status 12/24/2017 58783 Echocardiogram Complete Completed 07/23/2017 [id number] Mammogram Completed 07/18/2017 [id number] Bone Mineral Density Test Completed 06/19/2017 [id number] Diabetic Foot Exam Completed 02/13/2017 57134 Radiology, Shoulder: Two Views (Sso) Completed 2017 04945 Radiology, Shoulder: Two Views (Sso) Completed 2017 52512 Radiology, Shoulder: Two Views (Sso) Completed 2017 96128 Radiology, Shoulder: Two Views (Sso) Completed 01/15/2017 79003 Arthroplasty Shoulder Total Completed 01/15/2017 16463 Arthroplasty Shoulder Total Completed 01/15/2017 20675 Arthroplasty Shoulder Total Completed 01/08/2017 48284 EKG-Tracing And Report Completed 12/03/2016 65551 Radiology, Shoulder: Two Views (Sso) Completed 01/24/2015 [id number] Mammogram Completed 01/22/2014 [id number] Mammogram Completed 11/18/2013 06989 Radiology, Knee 3 Views Completed 11/18/2013 64608 Radiology, Knee 3 Views Completed 01/09/2013 [id number] Mammogram Completed 06/12/2012 20999 Echocardiogram Complete Completed 11/29/2011 51959 Total Knee Arthroplasty medial&lateral compartments Completed w/wo dos santos res 05/01/2011 82630 Anesthesia, Lens Surgery Completed 04/17/2011 75172 Anesthesia, Lens Surgery Completed 12/18/2010 08785 Echocardiogram Complete Completed 07/01/2010 [id number] Colonoscopy Completed 05/31/2009 70423 Echocardiogram Complete Completed 12/03/2008 62516 Echocardiogram Complete Completed 03/15/2008 74489 Stress Test Interpre And Report Only Completed Encounters Type Date Location Provider Dx Diagnosis Office Visit 08/08/2018 Primary Care Sandi Munoz.818 Encounter for other 1:00p Office LESLIE Vance preprocedural examination M25.511 Pain in right shoulder 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 N18.3 Chronic kidney disease, stage 3 (moderate) I10 Essential (primary) hypertension G25.0 Essential tremor Office Visit 03/05/2018 3:00p Primary Care Peyton Scales, E78.2 Mixed hyperlipidemia Office MD N18.3 Chronic kidney disease, stage 3 (moderate) I10 Essential (primary) hypertension 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1 Cardiac murmur, unspecified Office Visit 09/18/2017 1:00p Primary Care Peyton Scales, E08.21 Diabetes due to Office MD underlying condition w diabetic nephropathy I10 Essential (primary) hypertension E78.2 Mixed hyperlipidemia N18.3 Chronic kidney disease, stage 3 (moderate) G25.0 Essential tremor S22.000D Wedge comprsn fx unsp thor vert, subs for fx w routn heal X58.xxxD Exposure to other specified factors, subsequent encounter Office Visit 08/21/2017 3:30p RAIMUNDO Davis MD R13.10 Dysphagia, unspecified K44.9 Diaphragmatic hernia without obstruction or gangrene Office Visit 07/17/2017 Orthopaedic Paulo, Z96.612 Presence of left 1:15p Office Lloyd Osorio artificial shoulder joint Office Visit 06/19/2017 Primary Care Peyton Scales, E08.21 Diabetes due to 2:00p Office MD underlying condition w diabetic nephropathy R25.1 Tremor, unspecified S22.000A Wedge compression fracture of unsp thoracic vertebra, init N18.3 Chronic kidney disease, stage 3 (moderate) Office Visit 05/22/2017 4:00p RAIMUNDO Davis MD R13.10 Dysphagia, unspecified K44.9 Diaphragmatic hernia without obstruction or gangrene Office Visit 05/21/2017 10:15a Endocrinology Maureen Mcclendon, E66.9 Obesity, M.D. 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, left shoulder Office Visit 12/03/2016 Orthopaedic Paulo M25.512 Pain in left 2:00p Office Lloyd Osorio shoulder Office Visit 11/12/2016 Primary Care Peyton Scales, M25.512 Pain in left 11:40a Office shoulder Office Visit 09/17/2016 Primary Care Peyton Scales, S22.000A Wedge compression 2:20p Office fracture of unsp thoracic vertebra, init R25.1 Tremor, unspecified E11.9 Type 2 diabetes mellitus without complications I10 Essential (primary) hypertension N18.3 Chronic kidney disease, stage 3 (moderate) Office Visit 05/10/2016 1:00p Primary Care Peyton Scales, I10 Essential ( primary) Office hypertension E11.9 Type 2 diabetes mellitus without complications E78.5 Hyperlipidemia, unspecified R25.1 Tremor, unspecified N18.3 Chronic kidney disease, stage 3 (moderate) S22.000A Wedge compression fracture of unsp thoracic vertebra, init Office Visit 02/08/2016 9:00a Primary Care Corina Burr M62.830 Muscle spasm Office ZAINA Black of back W18.30xS Fall on same level, unspecified, sequela I10 Essential (primary) hypertension S92.512S Disp fx of proximal phalanx of left lesser toe(s), sequela Office Visit 01/30/2016 10:00a Primary Care Peyton Scales, E11.9 Type 2 diabetes Office mellitus without complications E78.5 Hyperlipidemia, unspecified I10 Essential (primary) hypertension S93.402A Sprain of unspecified ligament of left ankle, init encntr M62.830 Muscle spasm of back W18.30xA Fall on same level, unspecified, initial encounter N18.3 Chronic kidney disease, stage 3 (moderate) R25.1 Tremor, unspecified Office Visit 02/07/2011 2:00p Surgical Office Andi, 433.10 Occlusion & Lioopher H., 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 Plan of Treatment Future Appointment(s):08/14/2018 1:00 pm - Peyton Scales MD at Primary [facility]9308/26/2018 1:00 pm - Chuy Martines MD at GI08/08/2018 - Hayley Munoz, PAZ01.818 Encounter for other preprocedural examinationComments:Pt is an acceptable risk for anticipated procedure.M25.511 Pain in right shoulderComments:For surgical mxalbmazpmpcZ01.21 Diabetes mellitus due to underlying condition with diabeticComments:On Lantus and Humalog per Dr Mariano.Should consult Dr Mariano for any insulin orders ann-lalitarmvscG79.3 Chronic kidney disease, stage 3 (moderate)Comments:Will check urine C+SI10 Essential ( primary) hypertensionComments:EKG- NSRWell controlled.G25.0 Essential tremorComments:Stable
--- OUTSIDE RECORDS SUMMARY | 2018-08-20 05:47 | XMS REPORT | Continuity of Care Document ---
:1935 External Reference #:[id number] Author Name Luma Burgos Care Team Providers Name Role Phone Peyton Scales MD Care Team Information Conservation Technician Unavailable Peyton Scales MD Primary Care Physician Unavailable Payers Date Identification Numbers Payment Provider Subscriber Effective: 2001 Policy Number: [id number] Medicare Tiarra Christensen PayID: [id number] [address] [place] [address] Policy Number: [id number] [facility] Tiarra Christensen PayID: [id number] [address] [place] [address] Expires: 2017 Policy Number: [facility] Tiarra Christensen [id number] PayID: [id number] [address] [place] [address] Advance Directives Description No Information Available Problems [...] Onset: 05/10/2016 Type 2 diabetes mellitus Peyton Scales MD Inactive Inactive: 12/04/2017 Onset: 05/10/2016 Hyperlipidemia [...] mouth every 8 e, MS, 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 CN Reference # [id number] Omeprazole 08/21/19 Active Capsules 20mg 90cap 1 tab by [email or web address] Arndt 18 s mouth every MD Ryan day every morning Caretouch 05/21/20 Active Misc Twist 33 100un use to check Yordy, Twist Lancets 17 its fs and twice MD Peyton 33G a day True Metrix 05/21/20 Active Kit w/Device 2unit Use to BS as E08.21 Litvin, Go Blood 17 s ordered Maureen, Glucose Meter M.D. Pen [place] 02/20/20 Active Misc 31G X 8 100un use with Litalycia, 16" 17 mm its insulin Maureen, device as M.D. directed Lantus 02/19/20 Active Solution 100Unit/M 15ml 30 units E08.21 Litalycia, Solostar 17 Pen-Injec L subcutaneous Maureen, t every day M.D. 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 Furosemide Active Tablets 40mg 90tab 1 po bid Unknown 00 s Baby Aspirin Active Chewtabs 81mg 1 po qd Unknown Vitamin D Active Tablets 1000Unit 1 tab two Unknown 00 times daily. 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 Omeprazole 01/26/20 Hx Capsules 40mg 30cap 1 tab by R13.10 Hair 17 - DR s mouth every MD Ryan 09/19/19 day every 18 morning Oxycodone HCL 01/08/20 Hx Tablets 10mg 40tab 1 by mouth M12.512 Paulo 17 - s every 4-6 Devon, 02/19/20 hour as Lloyd 17 [...] Hx Tablets 50mg 50tabs 1 tab tid [place], Luther Merrill MD [place] - Hx Tablets [...] CPT Code Status Date Vaccine Lot # [id number] Given 03/05/2018 Influenza High Dose [id number] Vital Signs Date Vital Result Comment 08/08/2018 12:54pm BP Systolic Sitting Left Arm 132 mmHg BP Diastolic Sitting Left Arm 68 mmHg Body Temperature 99.4 F Heart Rate 69 /min reg Respiratory Rate 18 /min Height 57 inches 4'9" Weight 171.00 lb BMI (Body Mass Index) 37.0 kg/m2 BSA (Body Surface Area) 1.68 m2 [place] body weight in kilograms 45 kg O2 % BldC Oximetry 96 % ra 03/05/2018 2:54pm BP Systolic Sitting Left Arm 134 mmHg BP Diastolic Sitting Left Arm 68 mmHg Body Temperature 99.2 F Arthur 98.4 Heart Rate 52 /min reg Respiratory Rate 18 /min Height 57 inches 4'9" Weight 180.00 lb BMI (Body Mass Index) 38.9 kg/m2 BSA (Body Surface Area) 1.72 m2 [place] body weight in kilograms 45 kg O2 % BldC Oximetry 95 % ra 02/19/2018 3:36pm BP Systolic Sitting Left Arm 145 mmHg BP Diastolic Sitting Left Arm 83 mmHg Heart Rate 57 /min Respiratory Rate 18 /min Height 57 inches 4'9" Weight 181.00 lb BMI (Body Mass Index) 39.2 kg/m2 BSA (Body Surface Area) 1.72 m2 [place] body weight in kilograms 45 kg O2 [...] kg/m2 BSA (Body Surface Area) 1.73 m2 [place] body weight in kilograms 45 kg O2 % BldC Oximetry 98 % ra 09/18/2017 1:04pm BP Systolic Sitting Right Arm 146 mmHg BP Diastolic Sitting Right Arm 75 mmHg Heart Rate 60 /min Respiratory Rate 12 /min Height 57 inches 4'9" Weight 188.00 lb BMI (Body Mass Index) 40.7 kg/m2 BSA (Body Surface Area) 1.75 m2 [place] body weight in kilograms 45 kg 08/21/2017 3:37pm BP Systolic Sitting Left Arm 136 mmHg BP Diastolic Sitting Left Arm 78 mmHg Heart Rate 59 /min Respiratory Rate 16 /min Height 57 inches 4'9" Weight 187.00 lb BMI (Body Mass Index) 40.5 kg/m2 BSA (Body Surface Area) 1.75 m2 [place] body weight in kilograms 45 kg 07/17/2017 12:57pm BP Systolic 137 mmHg BP Diastolic 69 mmHg Body Temperature 86.7 F Heart Rate 50 /min Respiratory Rate 16 /min Height 57 inches 4'9" Weight 187.00 lb BMI (Body Mass Index) 40.5 kg/m2 BSA (Body Surface Area) 1.75 m2 [place] body weight in kilograms 45 kg 06/19/2017 1:57pm BP Systolic Sitting Left Arm 119 mmHg BP Diastolic Sitting Left Arm 62 mmHg Heart Rate 53 /min Respiratory Rate 16 /min Height 57 inches 4'9" Weight 186.00 lb BMI (Body Mass Index) 40.2 kg/m2 BSA (Body Surface Area) 1.74 m2 [place] body weight in kilograms 45 kg 05/22/2017 3:59pm BP Systolic Sitting Left Arm 124 mmHg BP Diastolic Sitting Left Arm 80 mmHg Heart Rate 64 /min Respiratory Rate 16 /min Height 57 inches 4'9" Weight 185.00 lb BMI (Body Mass Index) 40.0 kg/m2 BSA (Body Surface Area) 1.74 m2 [place] body weight in kilograms 45 kg 05/21/2017 10:06am BP Systolic 138 mmHg BP Diastolic 70 mmHg Height 57 inches 4'9" Weight 187.50 lb BMI (Body Mass Index) 40.6 kg/m2 BSA (Body Surface Area) 1.75 m2 [place] body weight in kilograms 45 kg 02/18/2017 10:18am BP Systolic 98 mmHg BP Diastolic 66 mmHg Height 57 inches 4'9" Weight 184.00 lb BMI (Body Mass Index) 39.8 kg/m2 BSA (Body Surface Area) 1.74 m2 [place] body weight in kilograms 45 kg 2017 9:53am BP Systolic 132 mmHg BP Diastolic 80 mmHg Height 57 inches 4'9" Weight 188.00 lb BMI (Body Mass Index) 40.7 kg/m2 BSA (Body Surface Area) 1.75 m2 [place] body weight in kilograms 45 kg 01/25/2017 11:42am BP Systolic Sitting Left Arm 122 mmHg BP Diastolic Sitting Left Arm 78 mmHg Heart Rate 56 /min Respiratory Rate 16 /min Height 57 inches 4'9" Weight 189.00 lb BMI (Body Mass Index) 40.9 kg/m2 BSA (Body Surface Area) 1.76 m2 [place] body weight in kilograms 45 kg 01/23/2017 9:16am BP Systolic Sitting Right Arm 132 mmHg BP Diastolic Sitting Right Arm 61 mmHg Body Temperature 97.6 F Heart Rate 55 /min Respiratory Rate 16 /min Height 57 inches 4'9" Weight 192.00 lb BMI (Body Mass Index) 41.5 kg/m2 BSA (Body Surface Area) 1.77 m2 [place] body weight in kilograms 45 kg O2 Saturation Level with Exercise 97 % 01/08/2017 12:59pm BP Systolic Sitting Left Arm 162 mmHg Arthur 110/72 BP Diastolic Sitting Left Arm 70 mmHg Arthur 110/72 Body Temperature 96.7 F Heart Rate 66 /min Height 57 inches 4'9" Weight 185.00 lb BMI (Body Mass Index) 40.0 kg/m2 BSA (Body Surface Area) 1.74 m2 [place] body weight in kilograms 45 kg O2 % BldC Oximetry 97 % 01/07/2017 10:22am BP Systolic Sitting Right Arm 144 mmHg BP Diastolic Sitting Right Arm 75 mmHg Heart Rate 48 /min Height 57 inches 4'9" Weight 189.00 lb BMI (Body Mass Index) 40.9 kg/m2 BSA (Body Surface Area) 1.76 m2 [place] body weight in kilograms 45 kg 12/03/2016 3:04pm BP Systolic Sitting Left Arm 134 mmHg BP Diastolic Sitting Left Arm 78 mmHg Heart Rate 60 /min Height 57.5 inches 4'9.50" Weight 184.00 lb BMI (Body Mass Index) 39.1 kg/m2 BSA (Body Surface Area) 1.75 m2 [place] body weight in kilograms 45 kg 11/12/2016 11:23am BP Systolic Sitting Left Arm 132 mmHg BP Diastolic Sitting Left Arm 80 mmHg Body Temperature 98.0 F Heart Rate 64 /min Respiratory Rate 18 /min Height 59 inches 4'11" Weight 181.00 lb BMI (Body Mass Index) 36.6 kg/m2 BSA (Body Surface Area) 1.77 m2 [place] body weight in kilograms 45 kg O2 [...] kg/m2 BSA (Body Surface Area) 1.79 m2 [place] body weight in kilograms 45 kg 02/08/2016 [...] 6.5-7.5 Ua Blood negative Negative Ua Specific [place] 1.020 1.010-1.030 Ua Ketones negative Negative Ua Bilirubin negative Negative Ua Glucose negative Negative Comprehensive Metabolic 06/30/2018 [facility] Glucose 78 mg/dL N 74-106 1 Panel [address] [place], [place] [id number] [phone] BUN 28 mg/dL High 7-18 Creatinine 1.7 [...] U/L High 45-117 LDL Cholesterol Profile 06/30/2018 [facility] Cholesterol 137 mg/dL <200 3 [address] [place], [place] [id number] [phone] Triglycerides 104 mg/dL <150 4 HDL Cholesterol 47 mg/dL >40 5 LDL-Cholesterol 69 mg/dL < 100 6 CBC W/Automated Diff 06/30/2018 [facility] White Blood 8.1 K/uL N 3.1-10.[address] [place] [address] [phone] Red Blood Count 4.37 M/uL N 3.90-5.40 [...] 40.4-72.8 Lymph % 23.9 % N 20.0-42.0 [place] % 8.3 % N 4.3-13.2 Eo% 3.0 % N 0.0-6.6 Bas% 0.9 % N 0.0-1.1 Neut# 5.19 K/uL N 1.8-7.0 Lymph # 1.94 K/uL N 1.0-4.0 [place] # 0.67 K/uL N 0.3-0.9 Eos # 0.24 K/uL N 0.0-0.5 Baso # 0.07 K/uL N 0.0-0.1 Laboratory test 06/30/2018 [facility] Vitamin 40.4 30.0-100.0 [address] D,25-Hydroxy ng/[place] [address] [phone] Glycohemoglobin 06/30/2018 [facility] Glycohemoglobin 7.2 % High 4.2-6.[address] (A1c) [place] [address] [phone] eAG 160 mg/dL LDL Cholesterol 02/25/2018 [facility] Cholesterol 135 mg/dL <200 9, [address] [place] [address] [phone] Triglycerides 103 mg/dL <150 11 HDL Cholesterol 41 mg/dL >40 12 LDL-Cholesterol 73 mg/dL < 100 13 Glycohemoglobin 02/25/2018 [facility] Glycohemoglobin 7.9 % High 4.2-6.3 14 A1c [address] [facility] (A1c) [place] [address] [phone] eAG 180 mg/dL Laboratory test 02/25/2018 [facility] Thyroid Stim 4.11 uIU/mL N 0.30-4.20 finding 134 [facility] [place] [place] [address] [phone] Free T4 1.01 ng/dL N 0.76-1.46 LDL Cholesterol 09/25/2017 [facility] Cholesterol 159 mg/dL <200 15, 16 Profile [address] [place] [address] [phone] Triglycerides 111 mg/dL <150 17 HDL Cholesterol 50 mg/dL >40 18 LDL-Cholesterol 87 mg/dL < 100 19 Ua RFX Micro & Culture 06/19/2017 [facility] Urine Color YELLOW Yellow 20 II [address] [place] [address] [phone] Urine Clarity CLEAR Clear Urine Glucose - Dipstick NEGATIVE mg/dL Negative Urine Bilirubin - Dipstick NEGATIVE Negative Urine Ketone NEGATIVE mg/dL Negative Urine Specific [place] 1.010 N 1.010-1.030 Urine Blood NEGATIVE Negative Urine PH 5.0 Low 6.5-7.5 Urine Protein - Dipstick NEGATIVE mg/dL Negative Urine Urobilinogen - Dipstick 0.2 E.U./dL N 0.2-1.0 Urine Nitrite - Dipstick NEGATIVE Negative Urine Leuk Esterase NEGATIVE Negative Source: URINE, CLEAN CAT <SEE NOTE> 21 Urine Culture 06/19/2017 [facility] Urine Culture [address] [place] [address] [phone] Quantity 10,000 - 50,000 <SEE NOTE> 22 [...] K/uL 3.1-10.[address] [place] [address] [phone] Red Blood Count 3.33 M/uL Low 3.90-5.40 [...] fL N 8.9-12.4 Basic Metabolic Panel 01/16/2017 [facility] Glucose 246 mg/dL High 74-[address] [place], [place] [id number] [phone] BUN 34 mg/dL High 7-18 Creatinine 2.0 mg/dL High 0.6-1.3 Glom Filtration Rate, Estimate 26 mL/min >60 If 31 mL/min >60 24 BUN/Creat 17.0 ratio Sodium 140 mmol/L N 136-145 Potassium 4.5 mmol/L N 3.5-5.1 Chloride 104 mmol/L N 98-107 Carbon Dioxide 29 mmol/L N 21-32 Anion Gap 7 mEq/L Low 8-16 Calcium 8.6 mg/dL N 8.5-10.1 Glycohemoglobin 01/16/2017 [facility] Glycohemoglobin 6.7 % High 4.2-6.[address] (A1c) [place], [place] [id number] [phone] eAG 146 mg/dL Capillary blood 01/16/2017 N2N/CCD [...] N 1.8-2.[address] mg/dL [place], [place] [address] [phone] Comprehensive 01/15/2017 [facility] Glucose 159 High 74-106 Metabolic Panel [address] mg/dL [place], [place] [id number] [phone] BUN 36 mg/dL High 7-18 Creatinine 2.0 [...] Phosphatase 95 U/L N 45-117 CBC 01/15/2017 [facility] White Blood Count 13.3 K/uL High 3.1-10.7 [address] [place] [address] [phone] Red Blood Count 3.72 M/uL Low 3.90-5.40 [...] RBC Auto 47.0 3-47 Basic Metabolic 01/08/2017 [facility] Glucose 299 mg/dL High 74-106 27 Panel [address] [place], [place] [address] [phone] BUN 58 mg/dL High 7-18 Creatinine 2.2 mg/dL High 0.6-1.3 Glom Filtration Rate, Estimate 23 mL/min >60 If 28 mL/min >60 28 BUN/Creat 26.3 ratio Sodium 137 mmol/L N 136-145 Potassium 4.9 mmol/L N 3.5-5.1 Chloride 98 mmol/L N 98-107 Carbon Dioxide 33 mmol/L High 21-32 Anion Gap 6 mEq/L Low 8-16 Calcium 9.2 mg/dL N 8.5-10.1 CBS W/Automated Diff 01/08/2017 [facility] White Blood 9.0 K/uL N 3.1-10.[address] [place] [address] [phone] Red Blood Count 4.19 M/uL N 3.90-5.40 [...] 40.4-72.8 Lymph % 15.0 % Low 20.0-42.0 [place] % 7.2 % N 4.3-13.2 Eo% 0.4 % N 0.0-6.6 Bas% 0.2 % N 0.0-1.1 Neut# 6.94 K/uL N 1.8-7.0 Lymph # 1.35 K/uL N 1.0-4.0 [place] # 0.65 K/uL N 0.3-0.9 Eos # 0.04 K/uL N 0.0-0.5 Baso # 0.02 K/uL N 0.0-0.1 Anticoagulant Therapy? NO Protime 01/08/2017 [facility] Protime 13.4 seconds N 12.0-14.4 [address] [place] [address] [phone] Inr 1.0 N 0.9-1.1 29 Anticoagulant Therapy? NO Act Partial 01/08/2017 [facility] Act Partial 30.8 seconds N 23.4-35.0 Thrombo Time [address] [facility] [place] [address] [phone] Anticoagulant Therapy? NO Urine Culture 01/08/2017 [facility] Urine Culture [address] [place] [address] [phone] Quantity 10,000 - 50,000 <SEE NOTE> N 30 Ua Routine 01/08/2017 [facility] Urine Color YELLOW Yellow [address] [place] [address] [phone] Urine Clarity CLEAR Clear Urine Glucose - Dipstick NEGATIVE mg/dL Negative Urine Bilirubin - Dipstick NEGATIVE Negative Urine Ketone NEGATIVE mg/dL Negative Urine Specific [place] <=1.005 Low 1.010-1.030 Urine Blood NEGATIVE Negative [...] <200 33, Profile [address] [place] [address] [phone] Triglycerides 167 mg/dL High <150 35 HDL [...] [address] & W/O [place] [address] [phone] Laboratory test 11/28/2010 [facility] BUN 33 mg/dL High 5-23 [address] [place] [address] [phone] Creatinine 1.6 mg/dL High 0.5-1.4 43 1 [...] D deficiency has been defined by the [employer] of [employer] and an Endocrine Society practice guideline as a level of serum 25-OH vitamin D less than 20 ng/mL (1,2). The Endocrine Society went on to further define vitamin D insufficiency as a level between 21 and 29 ng/mL (2). 1. IOM ([employer] of Medicine). 2010. Dietary reference intakes for calcium and D. [place]: The National Academies Press. 2. Sergio RIVERA, Stoney MARQUIS, Omar MON, et al. Evaluation, treatment, and prevention of vitamin D deficiency: an Endocrine Society clinical practice guideline. JCEM. 2010; 96(7):1911-30. Performed at: RN - [facility] [address] [id number] Tube Skiver: Lyric Myers MD, Phone: [phone] Elevated levels of HbA1c suggest the need for more aggressive treatment of glycemia. The [place] [employer] recommends that a primary goal [...] for more aggressive treatment of glycemia. The [place] [employer] recommends that a primary goal [...] for more aggressive treatment of glycemia. The [place] [employer] recommends that a primary goal [...] 3.5 Mechanical heart valves 42 Comments to director of research: CALL TO [phone] CALLED ARIAN Munguia AT 1047 11/28/10 by LAB.SANDIE QUERY: @EMR Pat ID: QUERY: @EMR Req #: 43 Comments to director of research: CALL TO [phone] CALLED ARIAN Munguia AT 1047 11/28/10 by LAB.SANDIE QUERY: @EMR Pat ID: QUERY: @EMR Req #: Procedures Date Code Description Status 12/24/2017 30638 Echocardiogram Complete Completed 07/23/2017 [id number] Mammogram Completed 07/18/2017 [id number] Bone Mineral Density Test Completed 06/19/2017 [id number] Diabetic Foot Exam Completed 02/13/2017 00286 Radiology, Shoulder: Two Views (Sso) Completed 2017 98035 Radiology, Shoulder: Two Views (Sso) Completed 2017 38017 Radiology, Shoulder: Two Views (Sso) Completed 2017 22710 Radiology, Shoulder: Two Views (Sso) Completed 01/15/2017 80105 Arthroplasty Shoulder Total Completed 01/15/2017 93217 Arthroplasty Shoulder Total Completed 01/15/2017 64815 Arthroplasty Shoulder Total Completed 01/08/2017 79214 EKG-Tracing And Report Completed 12/03/2016 56496 Radiology, Shoulder: Two Views (Sso) Completed 01/24/2015 [id number] Mammogram Completed 01/22/2014 [id number] Mammogram Completed 11/18/2013 26116 Radiology, Knee 3 Views Completed 11/18/2013 97828 Radiology, Knee 3 Views Completed 01/09/2013 [id number] Mammogram Completed 06/12/2012 73327 Echocardiogram Complete Completed 11/29/2011 49677 Total Knee Arthroplasty medial&lateral compartments Completed w/wo dos santos res 05/01/2011 90862 Anesthesia, Lens Surgery Completed 04/17/2011 11528 Anesthesia, Lens Surgery Completed 12/18/2010 00881 Echocardiogram Complete Completed 07/01/2010 [id number] Colonoscopy Completed 05/31/2009 12329 Echocardiogram Complete Completed 12/03/2008 23377 Echocardiogram Complete Completed 03/15/2008 43752 Stress Test Interpre And Report Only Completed Encounters Type Date Location Provider Dx Diagnosis Office Visit 03/05/2018 Primary Care Peyton Scales, E78.2 Mixed hyperlipidemia 3:00p Office N18.3 Chronic kidney disease, stage 3 (moderate) [...] Visit 05/21/2017 10:15a Endocrinology Maureen Mcclendon, E66.9 Cass MEulaliaD. unspecified I10 Essential (primary) hypertension E78.2 Mixed [...] Office Visit 12/12/2016 2:30p Orthopaedic Office Devon Bates, M25.512 Pain in left M.D. 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
[2018-08-20] MEDS ORDERED: Gabapentin CAP(*) 300 MG PO ONE (06:00)
[2018-08-20] MEDS ORDERED: Famotidine IV* 10 MG/ML 2 ML (20 mg) IV ONE (06:00)
[2018-08-20] MEDS ORDERED: Lactated Ringers 1000 ML Bag* 1,000 ML IV SCH (06:00)
[2018-08-20] MEDS ORDERED: Famotidine IV* 10 MG/ML 2 ML (20 mg) ONE (06:13)
[2018-08-20] MEDS ORDERED: ceFAZolin 2 GM PREMIX in ORs 2 GM/50 ML BAG IVPB ONE (06:13)
[2018-08-20] MEDS ORDERED: Gabapentin CAP(*) 300 MG ONE (06:13)
[2018-08-20] MEDS ORDERED: ROPIVACAINE 5 MG/ML 30 ML BTL (0.5%) ONE (07:12)
[2018-08-20] MEDS ORDERED: Lidocaine 1%* 5 ML VIAL ONE (07:12)
[2018-08-20] MEDS ORDERED: fentaNYL* 50 MCG/ML 2 ML VIAL (100 MCG VIAL) ONE (07:19)
[2018-08-20] MEDS ORDERED: Midazolam* 1 MG/ML 2 ML VIAL (2 MG) ONE ×2 (07:20→08:15)
[2018-08-20] MEDS ORDERED: KETAMINE HCL* 50 MG/ML 10 ML VIAL ONE (08:04)
[2018-08-20] MEDS ORDERED: Propofol* 10 MG/ML 20 ML BTL ONE ×2 (08:48→09:15)
[2018-08-20] MEDS ORDERED: Glycopyrrolate IV* 0.2 MG/ML 1 ML VIAL ONE (08:48)
[2018-08-20] MEDS ORDERED: Succinylcholine* 20 MG/ML 10 ML VIAL ONE (08:48)
[2018-08-20] MEDS ORDERED: Phenylephrine IV* 40 MCG/ML 10 ML SYRINGE ONE (08:48)
[2018-08-20] MEDS ORDERED: Ketorolac INJ* 30 MG/ML 1 ML VIAL ONE (08:48)
[2018-08-20] MEDS ORDERED: Ondansetron INJ* 2 MG/ML VIAL ONE (08:48)
[2018-08-20] MEDS ORDERED: DiMENhydriNATE IV* 50 MG/ML VIAL ONE (08:48)
[2018-08-20] MEDS ORDERED: EPHEDrine (Pressors)* 50 MG/ML VIAL ONE (08:48)
[2018-08-20] MEDS ORDERED: Dexamethasone IV* 4 MG/ML 1 ML (4 MG) ONE (08:48)
[2018-08-20] MEDS ORDERED: Acetaminophen IV 1GM/100ML * 1,000 MG/100 ML VIAL IVPB ONE (09:21)
[2018-08-20] MEDS ORDERED: HYDROmorphone INJ1* 1 MG/ML SYRINGE IV PRN (09:21)
[2018-08-20] MEDS ORDERED: DiMENhydriNATE IV* 50 MG/ML VIAL IV PUSH PRN (09:21)
[2018-08-20] MEDS ORDERED: Naloxone* 0.4 MG/ML 1 ML VIAL IV PRN (09:21)
[2018-08-20] MEDS ORDERED: Gabapentin CAP(*) 100 MG PO ONE (09:24)
[2018-08-20] MEDS ORDERED: oxyCODONE TAB* 5 MG TAB PO PRN (09:41)
[2018-08-20] MEDS ORDERED: Temazepam CAP* 15 MG PO PRN (09:41)
[2018-08-20] MEDS ORDERED: Ondansetron ODT TAB* 4 MG PO PRN (09:41)
[2018-08-20] MEDS ORDERED: oxyCODONE/Acetamin 5/325 MG* TAB PO PRN ×2 (09:41)
[2018-08-20] MEDS ORDERED: diPHENhydraMINE IV* 50 MG/ML 1 ml VIAL (BENADRYL) IV PRN (09:41)
[2018-08-20] MEDS ORDERED: Polyethylene Glycol 3350* 17 GM PACKET PO PRN (09:41)
[2018-08-20] MEDS ORDERED: Cyclobenzaprine TAB* 10 MG PO PRN (09:41)
[2018-08-20] MEDS ORDERED: Ondansetron INJ* 2 MG/ML VIAL IV PRN (09:41)
[2018-08-20] MEDS ORDERED: diPHENhydraMINE PO* 25 MG PO PRN (09:41)
[2018-08-20] MEDS ORDERED: Bisacodyl SUPP* 10 MG SUPP PR PRN (09:41)
[2018-08-20] MEDS ORDERED: Magnesium Hydroxide LIQ* 30 ML UDC PO PRN (09:41)
[2018-08-20] MEDS ORDERED: traMADol TAB* 50 MG PO PRN (09:41)
[2018-08-20] MEDS ORDERED: Morphine INJ* 2 MG/ML 1 ML SYRINGE (TWO MG - NEW SYRINGE VERSION) IV PRN (09:41)
[2018-08-20] MEDS ORDERED: Insulin REGULAR(*) 1 UNITS UNIT SUBCUT ONE (09:54)
[2018-08-20] MEDS ORDERED: Insulin LISPRO* 1 UNITS UNIT SUBCUT ONE ×3 (09:55→23:37)
[2018-08-20] MEDS ORDERED: Acetaminophen TAB* 325 MG PO SCH (10:00)
[2018-08-20] MEDS ORDERED: ceFAZolin 1 GM ADVAN(*) 1 GM in NS 0.9% 50 ML* 50 ML IVPB SCH (10:00)
[2018-08-20] MEDS ORDERED: Dextrose 50% Syringe 50 ML* 25 GM/50 ML SYRINGE IV PUSH PRN (10:52)
[2018-08-20] MEDS: Lactated Ringers 1000 ML Bag* 1,000 ML IV SCH (13:10)
[2018-08-20] MEDS: Insulin LISPRO* 1 UNITS UNIT SUBCUT SCH ×3 (13:10→21:46)
--- NOTE | 2018-08-20 13:37 | CONS ---
CC: Dr. Peyton Scales * CONSULTATION REPORT: DATE OF CONSULT: 08/20/18 PRIMARY CARE PROVIDER: Dr. Peyton Scales MY ATTENDING WHILE IN THE HOSPITAL: Dr. Devon Frank REASON FOR CONSULTATION: Comanagement of comorbid medical conditions. HISTORY OF PRESENT ILLNESS: Ms. Christensen is an 83-year-old female with a past medical history significant for hypertension, carotid artery stenosis, stage 3 diabetic chronic kidney disease, and essential tremor who is postoperative for a right total reverse shoulder replacement. The patient in the postoperative arena has a dry mouth. The patient has no pain due to her nerve block in her shoulder. The patient denies chest pain, shortness of breath, nausea, vomiting , abdominal pain. The patient did have some labile blood pressure including some hypotension. While in the OR, the patient had estimated blood loss of 150 mL and was under general anesthesia. The patient also had hypoglycemia while in the OR and was given insulin. The patient denies fevers, chills, nausea, vomiting, abdominal pain. The patient had no fevers, chills, chest pain, shortness of breath, decreased exercise tolerance, recent sick contacts. Before he came into the hospital, the patient has been having some morning hypoglycemia and at home had been taking 5 units of Humalog with her evening meal and 20 units of Humalog at bedtime. Her primary care doctor notes state that she should be taking 20 units of Lantus at bedtime and 5 units of Humalog at nighttime. The patient has no pain and no other complaints at this time. PAST MEDICAL HISTORY: Hypertension, diabetes, osteoarthritis, hyperlipidemia, chronic kidney disease stage 3, macular degeneration, carotid artery stenosis, osteopenia, thyroid cyst, chronic essential tremors, intermittent dysphagia, spinal compression fracture, and diaphragmatic hernia. PAST SURGICAL HISTORY: Left shoulder surgery, bilateral knee replacements, tonsillectomy. MEDICATIONS: 1. Lipitor 80 mg p.o. daily. 2. Cyclobenzaprine 10 mg p.o. 3 times a day as needed. 3. Lisinopril 2.5 mg p.o. daily. This was not taken in the morning of surgery. 4. Furosemide 40 mg p.o. b.i.d. This was taken on the morning of surgery. 5. Aspirin 81 mg p.o. daily, last taken 5 days ago. 6. Vitamin D 1000 units daily. 7. Fish oil 1000 mg twice a day. 8. Ropinirole 0.5 mg by mouth at bedtime. 9. Humalog insulin 5 units at 1700, 20 units at bedtime. 10. Omeprazole 20 mg p.o. daily. 11. Tramadol 50 mg p.o. q.8 hours as needed. ALLERGIES: No known drug allergies. FAMILY HISTORY: The patient's mother of breast cancer. The patient's father at 77 of natural causes. The patient's sister is alive and well. The patient's brother of 2 different types of cancer. The patient's another brother who of complications of epilepsy. The patient had another brother who of complications of diabetes. SOCIAL HISTORY: The patient smoked when she was a teenager and quit over 60 years ago. The patient denies alcohol or illicit drug use. 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 The patient's surrogate decision maker would be her daughter, Brooke Wagner. REVIEW OF SYSTEMS: A 14-point review of systems was reviewed and is negative, except as above in the HPI. PHYSICAL EXAMINATION: General: The patient is an 83-year-old female who appears her stated age and sitting comfortably on the bed, in no acute distress. Vital Signs: Temperature 98.8, pulse rate 68, respiratory rate 18, oxygen saturation 97% on 6 L of nasal cannula, blood pressure 101/50. HEENT: Head is normocephalic, atraumatic. Sclerae anicteric. No conjunctival injection. Nasal mucosa moist. Oral mucosa moist. No pharyngeal erythema, discharge, or exudate. Neck: Supple, nontender. No lymphadenopathy. No carotid bruit auscultated. No JVD. Cardiac: Regular rate and rhythm. Grade 2/ 6 systolic ejection murmur heard best at the right upper sternal border. Respiratory: Clear to auscultation bilaterally. No wheezes, rales, or rhonchi. Good air exchange bilaterally. Abdomen: Soft, nontender, nondistended. Bowel sounds present in all 4 quadrants. No hepatosplenomegaly. No abdominal bruits auscultated. No hepatojugular reflux. Genitourinary: No suprapubic or CVA tenderness. Pop catheter in place draining clear yellow urine. Neuro: The patient has a pronounced right-sided facial droop which daughter states is new and does not correct with smiling. The patient is able to furrow her brow symmetrically and close her eyes to resistance. The patient has no decreased sensation on either side of her face. The patient's palate raises symmetrically. No other focal deficits. Limited strength testing available in the right operative extremity. Cerebellar testing performed without difficulty. Did not assess gait. Psychiatric: Pleasant and cooperative. LABORATORY DATA: Preoperatively, white blood cell count 7.0, hemoglobin 13.4, platelet count 317. INR 0.78, PT 28.0. Sodium 140, potassium 4.4, chloride 98 , carbon dioxide 33, anion gap 9, BUN 34, creatinine 1.7, glucose 335. Calcium 10.3. TSH 2.49, T4 0.81. ASSESSMENT AND PLAN: Ms. Christensen is an 83-year-old female with past medical history significant for carotid artery stenosis, hypertension, diabetes, chronic kidney disease stage 3, who is status post right total shoulder reverse , who is pain free but has a new right-sided facial droop, which will be evaluated further. 1. New right-sided facial droop. This is a commonly seen complication of nerve blocks associated with right shoulder replacement, however, the patient had blood pressure fluctuations intraoperatively and has known carotid stenosis of unknown side. The patient is at risk for stroke or a watershed infarct, but has no other focal deficits. The patient will be on neuro checks. Given the patient's recent history, the patient will not be given aspirin until this is able to be discussed with Neurology. The patient will have a neurology consultation. The patient will have CT of her brain to rule out bleed and assess for large visible infarcts. Based on the patient's progress, MRI of the brain might be indicated as well as with the full workup for stroke. 2. Postoperative state. Management per Orthopedics. Pain control is adequate with nerve block. The patient will have opiate pain control after that. The patient will have Lovenox for DVT prophylaxis, bowel regimen and will have Pop removed as soon as possible. 3. Diabetes. The patient has relatively uncontrolled diabetes, though her most recent A1c was 7.2. It appears the patient has been taking her insulin incorrectly at home. We will start the patient on decreased dose of Lantus at 10 units nightly and then on insulin sliding scale through the day with fingersticks a.c. and h.s. The patient received 4 units of regular insulin intraoperative. 3. Hypertension. The patient is currently borderline hypotensive. The patient took her Lasix this morning. We will hold Lasix and lisinopril and give the patient fluids. We will monitor blood pressure closely to hopefully maximize perfusion to the brain if this represents an acute cerebrovascular accident. 4. High cholesterol. Continue atorvastatin. 5. Chronic kidney disease stage 4. The patient's most recent creatinine was 1.7 representing a GFR of 28.8, which represents chronic kidney disease stage 4. We will repeat BMP in the morning and hydrate adequately monitoring for signs of fluid overload. We will renally dose the patient's Lovenox and avoid nephrotoxic medications. 6. DVT prophylaxis. Renally dose Lovenox as above. TIME SPENT: Approximately 1 hour spent on this consultation, 30 of which were spent [id number] with the patient obtaining history and physical and discussing treatment plan. This plan has been discussed with my attending, Dr. Devon Frank, and he is in agreement. Thank you very much for this consultation. Please feel free to call with any questions. LESLIE GUAMAN [id number]/[facility] #: [id number] CYRIL
[2018-08-20 14:01] LABS: BUN/Creatinine Ratio 17.5 (8-20); EGFR African American 30.9 (>60); EGFR Non-African American 25.5 (>60); Potassium 3.7 mmol/L (3.5-5.0)
[2018-08-20 14:10] LABS: ABS Basophils 0 10^3/ul (0-0.2); ABS Eosinophils 0 10^3/ul (0-0.6); ABS Lymphocytes 0.6 10^3/ul (1.0-4.8); ABS Monocytes 0.3 10^3/ul (0-0.8); ABS Neutrophils 8.8 10^3/ul (1.5-7.7); ABS Nucleated RBC 0 10^3/ul; Eosinophil % 0.1 %; Hematocrit 33 % (35-47); Hemoglobin 11.1 g/dl (12.0-16.0); Lymphocyte % 6.1 %; Mean Corpuscular HGB Conc 33 g/dl (31-36); Mean Corpuscular Hemoglobin 29 pg (27-31); Mean Corpuscular Volume 88 fL (80-97); Mean Platelet Volume 8.7 fL (7.4-10.4); Nucleated Red Blood Cells % 0; Platelet Count 216 10^3/ul (150-450); Red Blood Count 3.78 10^6/ul (4.00-5.40); Red Cell Distribution Width 15 % (10.5-15); White Blood Count 9.7 10^3/ul (3.5-10.8)
--- NOTE | 2018-08-20 14:36 | PN ---
Hospitalist Progress Note Date of Service: 08/20/18 Updated with patient and daughter. Patient has persistent facial droop, unchanged from previously. Discussed with patient's daughter who discussed with her brother who lives with patient and states that this is a chronic, unchanged issue for patient. No further workup warranted.
--- NOTE | 2018-08-20 16:02 | PN ---
Progress Note - Progress Note Date of Service: 08/20/18 Note: Pt in room. Comfortable. Daughter at bedside. Temp Pulse Resp BP Pulse Ox 94.4 F 65 16 112/48 91 08/20/18 13:24 08/20/18 13:24 08/20/18 13:24 08/20/18 13:24 08/20/18 13:[address] Sling in place. SILT grossly distally. able to flex/ext digits. brisk cap refill. A/P POD#0 from R shoulder reverse NWB. ROM with PT. post op abx for 24 hours. drain d/c'd tomorrow. potential d/c home tomorrow pt worked up for stroke post op but her drooping face was likely due to block. discussed with Adryan Leigh to keep us informed if any issues. pt comfortable. and happy with care.
[2018-08-20] MEDS: ceFAZolin 1 GM ADVAN(*) 1 GM in NS 0.9% 50 ML* 50 ML IVPB SCH (18:04)
[2018-08-20] MEDS: Acetaminophen TAB* 325 MG PO SCH (18:05)
[2018-08-20] MEDS ORDERED: rOPINIRole TAB* 1 MG PO SCH (21:00)
[2018-08-20] MEDS ORDERED: Insulin GLARGINE(*) 1 UNITS UNIT SUBCUT SCH ×2 (21:00)
[2018-08-20] MEDS ORDERED: Furosemide TAB* 40 MG PO SCH (21:00)
[2018-08-20] MEDS: Docusate CAP* 100 MG PO SCH (21:10)
[2018-08-20] MEDS: Cholecalciferol TAB* 1000 UNITS PO SCH (21:11)
--- NOTE | 2018-08-21 00:30 | OP ---
CC: Primary care physician, Peyton Scales MD * DATE OF OPERATION: 08/20/18 - ROOM #334 DATE OF : 39 ATTENDING SURGEON: John Nye MD TECHNICAL SYSTEMS ARCHITECT: LESLIE Lima, KEYONNA Diamond, and LESLIE Fong student. ANESTHESIOLOGIST: Dr. Palomares. ANESTHESIA: General interscalene block. PRE-OP DIAGNOSIS: Right shoulder rotator cuff arthropathy. POST-OP DIAGNOSIS: Right shoulder rotator cuff arthropathy. OPERATIVE PROCEDURE: Right shoulder reverse shoulder arthroplasty. COMPLICATIONS: None. ESTIMATED BLOOD LOSS: About 150. OUTPUTS: Drain x1. IMPLANTS: Tornier Aequalis Reversed threaded post baseplate 35 x 25 with a centered glenosphere 36 mm, Ascend Flex 3B stem with +6 reverse polyp and a centered reverse tray. INDICATIONS: Tiarra Christensen is an 83-year-old female who had right shoulder persistent pain. She has a history of a previous reverse shoulder arthroplasty on the left side, which she did well with. She initially elected to proceed with surgical treatment. She is having significant pain and has failed conservative management including physical therapy, antiinflammatories, ice, heat. She has elected to proceed with surgical treatment. Risks and benefits were discussed at length including but not limited to bleeding, infection, damage to nerves, vessels, surrounding structures, wound nonhealing, persistent pain, need for further surgery, scaring, stiffness, incomplete relief of symptoms, and risks of anesthesia. DESCRIPTION OF PROCEDURE: The patient was greeted in the preoperative area by the attending surgeon. Correct extremity was marked. Consent was confirmed. The patient then underwent interscalene nerve block by the anesthesiologist after which she was brought back to the operating table. She was placed in the supine position on the operating room table. She then underwent general anesthesia with endotracheal intubation after which she was appropriately positioned in a beach chair position. All bony prominences were padded. She was secured with a peg. The right arm was then prepped and draped in the usual sterile fashion using chlorhexidine soap, scrub, and alcohol wipe and a final prep with ChloraPrep. After appropriate surgical pause indicating site, side, procedure, administration of antibiotics, the deltopectoral incision was then made with an attempt to go more laterally due to her habitus. The soft tissues were carefully dissected to expose the deltopectoral intervals. Soft tissues were carefully exposed to expose the clavipectoral fascia which was excised. A blunt Hohmann was placed proximally above the coracoid. Soft tissues were carefully exposed. The CA ligament was then released. The lateral aspect of the short head of the biceps was then mobilized. Subscap was mobilized. The pec was then identified. The insertion was then released approximately 1 to 1.5 cm, proximally was released. The biceps was identified, it was then tenotomized and followed into the shoulder. The subscapularis was still intact and this was then released in a subscap-peel type fashion. This was then tagged with a #5 Ethibond suture. The head was exposed, there were grade 4 changes with mild osteophytes inferiorly. The supraspinatus had some partial tearing. The head was then gently externally rotated and dislocated around the joint as the soft tissue adhesions were released. The electrocautery was used to maintain hemostasis at all times. Once the head was dislocated a provisional neck cut was then made using sagittal saw. The bone quality was quite poor along the humerus and there were multiple cysts. At this point broaching began for the humerus. The canal finder was used to find the canal. The sizing guide was then placed. The broaching was then placed to allow for about 20 degrees of retroversion. Once the appropriate stem was impacted into place, it was co-planed and a protection plate was placed and attention was directed to the glenoid. With the head brought back into the wound and a posterior retractor placed posteriorly, the glenoid was exposed. There were grade 4 changes to the glenoid. The biceps was then tenotomized and released the superior labrum. The posterior labrum and anterior labrum were then removed as well as inferiorly, there was some bone wear and small osteophytes. The subscap was released with adhesions to the superior, middle, and inferior glenohumeral ligaments with care to prevent any iatrogenic nerve injury. The subscap was mobilized and then a glenoid neck retractor was placed. The glenoid was fully exposed. It was quite small. The guidewire was then placed with about 10 mm superior from the most inferior point of the glenoid. The 25 mm baseplate reamer was then reamed carefully, then hand reaming for the footprint reamer for 36 mm. Once this was done, the 8 mm cannulated drill bit was then drilled. The bone quality was okay quality. The 6.5 mm was drilled. The depth measurement was about 30 mm. Decision was made to use a 35 mm threaded plate baseplate. Implants were then checked and brought into the field and placed with excellent purchase. Then 2 interlocking screws were placed superior and inferiorly to the appropriate length. Anterior and posteriorly, there was not a lot of room in the glenoid, so decision was made to not pursue that. The final glenosphere was then placed and impacted into position and secured with a set screw. At this point, attention was directed to the humerus again. The head was brought back through the wound and the stem was checked upon for any loosening. Once the size #3 stem was found to have a good fit, the centered trial tray was then placed and the shoulder was then reduced and taken through range of motion with appropriate amount of shock and there was no evidence of subluxation or dislocation. She was able to forward flex to about 130 and abduct to 90, externally rotate to about 50. The prosthesis was then dislocated and removed in its entirety and then the final implants were checked and brought to the table and then prepped by the attending surgeon. Two interosseus drill was then drilled to place #5 Ethibond sutures for subscap closure. The final implants were packed into position. The head was then reduced. The wounds were then copiously irrigated with sterile saline. The shoulder was taken through range of motion and it was found to be symmetric. Wounds were then copiously irrigated with sterile saline. The #5 Ethibond sutures were then passed through the subscap for a subscap closure in a horizontal mattress configuration and tied down with the shoulder in external rotation about 45 degrees. The wounds were irrigated again. An intraarticular drain was then placed. The deltopectoral interval was then closed with #2 Ethibond. The wound was irrigated again. The skin was closed in layers with 3- 0 Monocryl for subcu and then a running stitch. Sterile dressings were placed, Cryo/Cuff as well as a sling were then placed. She was awoken from anesthesia and transferred to PACU in stable condition. POSTOPERATIVE PLAN: She will be nonweightbearing. She will be in a sling for 6 weeks. She will be admitted for 24-hours antibiotics. DVT prophylaxis will be Lovenox while inhouse. She will undergo a medicine consult due to her uncontrolled diabetes. I will see the patient back in 10 to 14 days after surgery. [id number]/[facility] #: [id number] MTDD
[2018-08-21] MEDS: Lactated Ringers 1000 ML Bag* 1,000 ML IV SCH (01:05)
[2018-08-21] MEDS: ceFAZolin 1 GM ADVAN(*) 1 GM in NS 0.9% 50 ML* 50 ML IVPB SCH ×2 (01:41→10:06)
[2018-08-21] MEDS: Acetaminophen TAB* 325 MG PO SCH ×2 (01:42→10:06)
[2018-08-21] MEDS ORDERED: Insulin LISPRO* 1 UNITS UNIT SUBCUT ONE ×2 (01:52→01:57)
[2018-08-21 05:43] LABS: Hematocrit 30 % (35-47); Hemoglobin 9.9 g/dl (12.0-16.0); Mean Platelet Volume 8.4 fL (7.4-10.4); Platelet Count 191 10^3/ul (150-450)
[2018-08-21 05:58] LABS: BUN/Creatinine Ratio 19.1 (8-20); Calcium 8.7 mg/dL (8.6-10.3); EGFR African American 32.1 (>60); EGFR Non-African American 26.5 (>60)
[2018-08-21] MEDS: Cholecalciferol TAB* 1000 UNITS PO SCH (08:38)
[2018-08-21] MEDS: Insulin LISPRO* 1 UNITS UNIT SUBCUT SCH ×2 (08:39→12:39)
[2018-08-21] MEDS: Docusate CAP* 100 MG PO SCH (08:39)
[2018-08-21] MEDS ORDERED: Atorvastatin* 80 MG TAB PO SCH (09:00)
[2018-08-21] MEDS ORDERED: Pantoprazole TAB * 40 MG TAB PO SCH (09:00)
[2018-08-21] MEDS ORDERED: Aspirin EC TAB* 81 MG TAB.EC PO SCH (09:00)
[2018-08-21] MEDS ORDERED: NON FORMULARY MED* (Lisinopril [Lisinopril 2.5 Mg-] 2.5 MG) PO SCH (09:00)
--- NOTE | 2018-08-21 09:42 | PN ---
Progress Note - Progress Note Date of Service: 08/21/18 SOAP: Subjective: [] Pt seen at bedside. She feels well and desires DC home. Her blood sugar was very poorly controlled yesterday with sugars into the 500's, she was asymptomatic. Glucose control is improved today. Denies chest pain, shortness of breath, dizziness or nausea. Objective: []General: Well appearing, NAD RUE: Drain pulled with tip intact, tolerated well by the patient. Wrist and digits with flexion and extension intact. Okay, thumbs up sign intact. Sensation intact to light touch throughout the RUE. Capillary refill is brisk distally, radial pulse 2+. Assessment: [] POD#1 from R shoulder reverse Plan: []NWB To complete post op abx for 24 hours NWB RUE, PROM only no FF or abd past 90 no ER past 25, Ok AROM elbow wrist and hand Appreciate medicine consult, no further concern for stroke symptoms facial droop combo of chronic appearance and associated with block, DM2 management Vital Signs Temp 97.8 F 08/21/18 07:33 Pulse 46 08/21/18 07:33 Resp 16 08/21/18 08:00 BP 104/44 08/21/18 07:33 Pulse Ox 95 08/21/18 08:00 Intake & Output 08/20/18 08/21/18 08/21/18 18:59 06:59 18:59 Intake Total 752 1476 Output Total 350 500 125 Balance 402 976 -125 Intake: IV Fluids 696 LR 696 IVPB 282 100 ABX - CEFAZOLIN 100 LR 282 Oral 470 680 Output: Hemovac Amount #1 150 Urine 200 500 125 Other: Estimated Void Small # Bowel Movements 0 # Voids 1 Laboratory Last Values WBC 9.7 10^3/ul (3.5-10.8) 08/20/18 13:30 RBC 3.78 10^6/ul (4.00-5.40) L 08/20/18 13:30 Hgb 9.9 g/dl (12.0-16.0) L 08/21/18 05:07 Hct 30 % (35-47) L 08/21/18 05:07 MCV 88 fL (80-97) 08/20/18 13:30 MCH 29 pg (27-31) 08/20/18 13:30 MCHC 33 g/dl (31-36) 08/20/18 13:30 RDW 15 % (10.5-15) 08/20/18 13:30 Plt Count 191 10^3/ul (150-450) 08/21/18 05:07 MPV 8.4 fL (7.4-10.4) 08/21/18 05:07 Neut % (Auto) 90.7 % 08/20/18 13:30 Lymph % (Auto) 6.1 % 08/20/18 13:30 [place] % (Auto) 2.7 % 08/20/18 13:30 Eos % (Auto) 0.1 % 08/20/18 13:30 Baso % (Auto) 0.4 % 08/20/18 13:30 Absolute Neuts (auto) 8.8 10^3/ul (1.5-7.7) H 08/20/18 13:30 Absolute Lymphs (auto) 0.6 10^3/ul (1.0-4.8) L 08/20/18 13:30 Absolute Monos (auto) 0.3 10^3/ul (0-0.8) 08/20/18 13:30 Absolute Eos (auto) 0 10^3/ul (0-0.6) 08/20/18 13:30 Absolute Basos (auto) 0 10^3/ul (0-0.2) 08/20/18 13:30 Absolute Nucleated RBC 0 10^3/ul 08/20/18 13:30 Nucleated RBC % 0 08/20/18 13:30 Sodium 135 mmol/L (135-145) 08/21/18 05:06 Potassium 4.0 mmol/L (3.5-5.0) 08/21/18 05:06 Chloride 100 mmol/L (101-111) L 08/21/18 05:06 Carbon Dioxide 29 mmol/L (22-32) 08/21/18 05:06 Anion Gap 6 mmol/L (2-11) 08/21/18 05:06 BUN 35 mg/dL (6-24) H 08/21/18 05:06 Creatinine 1.83 mg/dL (0.51-0.95) H 08/21/18 05:06 Est GFR ( Amer) 32.1 (>60) 08/21/18 05:06 Est GFR (Non-Af Amer) 26.5 (>60) 08/21/18 05:06 BUN/Creatinine Ratio 19.1 (8-20) 08/21/18 05:06 Glucose 163 mg/dL (70-100) H 08/21/18 05:06 POC Glucose (mg/dL) 180 mg/dL (70-100) H 08/21/18 08:17 Glucose Meter Confirm 378 mg/dL (70-100) H 08/20/18 16:58 Hemoglobin A1c 8.2 % (4.0-5.6) H 08/21/18 05:06 Calcium 8.7 mg/dL (8.6-10.3) 08/21/18 05:06
--- NOTE | 2018-08-21 10:41 | PN ---
Subjective Date of Service: 08/21/18 Interval History: Discussed with patient and daughter Ms. Christensen's insulin routine. She has been taking 5U Humalog prior to her dinner, and then 20U Humalog at night around 2330. Looked at notes from Adryan Stevens on 07/10/2018, which state that pt should be taking: Lantus 20U daily and humalog taken at 5:00 pm (only if you are eating) 5U I recommend that the patient take the following: Lantus 20U once daily Humalog 5U withe meals Continue to monitor fingersticks multiple times throughout the day, including prior to meals and first thing in the morning Recommend very close follow up with endocrinology; bring log of fingersticks Objective Active Medications: Acetaminophen (Tylenol Tab*) 975 mg PO Q8H [facility] Last Admin: 08/21/18 10:06 Dose: Not Given Aspirin (Aspirin Ec Tab*) 81 mg PO QAM [facility] Last Admin: 08/21/18 08:39 Dose: 81 mg Atorvastatin Calcium (Lipitor*) 80 mg PO QAM [facility] Last Admin: 08/21/18 08:39 Dose: 80 mg Bisacodyl (Dulcolax Supp*) 10 mg [place] DAILY PRN PRN Reason: constipation Cholecalciferol (Vitamin D Tab*) 1,000 units PO BID [facility] Last Admin: 08/21/18 08:38 Dose: 1,000 units Cyclobenzaprine HCl (Flexeril Tab*) 5 mg PO TID PRN PRN Reason: SPASMS Dextrose (D50w Syringe 50 Ml*) 12.5 gm IV PUSH .FOR FS < 60 - SS PRN PRN Reason: FS < 60 Diphenhydramine HCl (Benadryl Iv*) 25 mg IV Q6H PRN PRN Reason: itching Diphenhydramine HCl (Benadryl Po*) 25 mg PO Q6H PRN PRN Reason: itching Docusate Sodium (Colace Cap*) 100 mg PO BID [facility] Last Admin: 08/21/18 08:39 Dose: 100 mg Enoxaparin Sodium (Lovenox(*)) 30 mg SUBCUT Q24H [facility] Lactated Ringer's (Lactated Ringers 1000 Ml Bag*) 1,000 mls @ 100 mls/hr IV PER RATE [facility] Last Admin: 08/21/18 01:05 Dose: 100 mls/hr Insulin Glargine (Lantus(*)) 20 units SUBCUT Q24H [facility] Last Admin: 08/20/18 21:52 Dose: 20 units Insulin Human Lispro (Humalog*) 0 units SUBCUT ACHS [facility]; Protocol Last Admin: 08/21/18 08:39 Dose: 3 units Lactulose (Lactulose*) 30 ml PO Q6H PRN PRN Reason: constipation Magnesium Hydroxide (Milk Of Magnesia Liq*) 30 ml PO Q6H PRN PRN Reason: constipation Morphine Sulfate (Morphine Inj ((Syringe))*) 2 mg IV Q2H PRN PRN Reason: PAIN Ondansetron HCl (Zofran Inj*) 4 mg IV Q6H PRN PRN Reason: nausea Ondansetron HCl (Zofran Odt Tab*) 4 mg PO Q6H PRN PRN Reason: NAUSEA Oxycodone HCl (Roxycodone Tab*) 10 mg PO Q4H PRN PRN Reason: PAIN Oxycodone/Acetaminophen (Percocet 5/325 Tab*) 1 tab PO Q4H PRN PRN Reason: PAIN Oxycodone/Acetaminophen (Percocet 5/325 Tab*) 2 tab PO Q4H PRN PRN Reason: PAIN Pantoprazole Sodium (Protonix Tab*) 40 mg PO QAM [facility] Last Admin: 08/21/18 08:38 Dose: 40 mg Polyethylene Glycol/Electrolytes (Miralax*) 17 gm PO DAILY PRN PRN Reason: Constipation Ropinirole HCl (Requip Tab*) 2 mg PO BEDTIME [facility] Last Admin: 08/20/18 21:10 Dose: 2 mg Temazepam (Restoril Cap*) 15 mg PO BEDTIME PRN PRN Reason: INSOMNIA Tramadol HCl (Ultram*) 50 mg PO Q6H PRN PRN Reason: PAIN Last Admin: 08/20/18 18:16 Dose: 50 mg Vital Signs - 8 hr 08/21/18 08/21/18 08/21/18 04:11 07:33 08:00 Temperature 97.6 F 97.8 F Pulse Rate 63 46 Respiratory 18 16 16 Rate Blood Pressure 117/49 104/44 (mmHg) O2 Sat by Pulse 95 95 95 Oximetry Oxygen Devices in Use Now: None Result Diagrams: 08/21/18 05:07 08/21/18 05:06 Assess/Plan/Problems-Billing Assessment:
[2018-08-21] MEDS ORDERED: Enoxaparin(*) 30 MG/0.3 ML SYR SUBCUT SCH (12:00)
[2018-08-21] MEDS ORDERED: Enoxaparin(*) 40 MG/0.4 ML SYR SUBCUT SCH (12:00)
[2018-08-21 12:05] VITALS: BP 114/50
--- NOTE | 2018-08-21 14:54 | DS ---
AMENDED REPORT NOW INCLUDES DATE OF DISCHARGE AND COSIGNER DESIGNATION DISCHARGE SUMMARY: DATE OF ADMISSION: 08/20/18 DATE OF DISCHARGE: 08/21/18 PROVIDER: Dr. John Nye.* (DICTATED BY LESLIE EDWARDS) SURGEON: Dr. John Nye. PRE-OP DIAGNOSIS: Right shoulder rotator cuff arthropathy. OPERATIVE PROCEDURE: Right shoulder reverse shoulder arthroplasty. ANESTHESIA: General and interscalene block. INDICATIONS: Ms. Christensen is an 83-year-old female who had right shoulder persistent pain. She has a history of previous reverse shoulder on the left side, which she did well with. She initially elected to proceed with surgical treatment. She is having significant pain and has failed conservative management including physical therapy, antiinflammatories, ice, and heat. She has elected to proceed with surgical treatment. HOSPITAL COURSE: Patient was admitted to [facility] on 08/20/18. She underwent a right shoulder reverse shoulder arthroplasty without complication. She was seen in the PACU for medical management by our medical service when it was noticed that the patient had a facial droop. After discussion with patient's family, this is a persistent and chronic facial droop and discussion with anesthesia as well as Dr. John Nye confirmed that the interscalene block she received can spread into the face as well. Despite these reassuring factors, she did have a brain CT, which showed no acute intracranial pathology. She also had a carotid Doppler study, which showed no hemodynamically significant stenosis of the right internal carotid artery by flow velocity measurements. This corresponds to a luminal diameter of less than 50% stenosis by NASCET criteria and 2 elevated peak systolic velocities in the left internal carotid artery consistent with left internal carotid artery stenosis between 50% and 69% by NASCET criteria. Our hospitalist service was also managing her medical comorbidities including diabetes. On postop day zero, overnight, she did have sugars into the 500 range. On postop day one, patient was well appearing, in no acute distress. Hemovac was pulled from her right shoulder, tip intact, tolerated well by the patient. Wrists and digits with flexion and extension intact. Sensation intact to light touch throughout the right upper extremity. Capillary refill brisk distally. Radial pulse 2+. Glucose is 163. Our hospitalist service has made the following recommendations for her diabetes managements: First and foremost, she needs close followup with her business development executive and primary care. Visiting home nurse will be providing diabetic education. Her long-acting insulin will be Lantus 20 units once daily. Short- acting medication will be Humalog 5 units with meals, fingerstick should be prior to meals as well as first thing in the morning. The patient was deemed medically and orthopedically stable for discharge to home. DISCHARGE MEDICATIONS: 1. Lisinopril 2.5 mg p.o. q.a.m. 2. Atorvastatin 80 mg p.o. q.a.m. 3. Aspirin 81 mg p.o. q.a.m. 4. Collins-3 fatty acids fish oil 1000 mg p.o. b.i.d. 5. Furosemide 40 mg p.o. b.i.d. 6. Cholecalciferol 1000 units p.o. b.i.d. 7. Omeprazole 20 mg p.o. q.a.m. 8. Ropinirole 0.25 mg tablets, may take 2 at bedtime. 9. Humalog KwikPen 5 units subcu with meals. 10. Lantus 20 units subcu q.24 hours. 11. Percocet 5/325 one to two tablets every 4 hours as needed for pain, max of 8 per day. While you are on Percocet, please hold your tramadol that you regularly take at home. If you desire to take tramadol only, then please hold the Percocet. Do not take these 2 medications together. 12. Acetaminophen 975 mg p.o. q.8 hours p.r.n., not to exceed a maximum of 4000 mg of Tylenol in 1 day. 13. Docusate 100 mg p.o. b.i.d. for constipation as needed. DISCHARGE PLAN: Patient will be discharged to home nonweightbearing of the operative upper extremity. No active range of motion of the shoulder. May continue active range of motion for elbow, wrist, and hand pendulum as shown by PT. Wound care, okay to shower after third postoperative day. Do not bathe, swim, or submerge the wound. Pain control, Percocet 5/325 one to two tablets every 4 to 6 hours for pain, max of 8 per day. Please follow up with your primary care or business development executive as soon as possible for diabetes management optimally this week if at all possible, if glucose level is in the 500s while you are in the hospital. At discharge, you will be taking 2 sets of insulin, long-acting Lantus 20 units once daily in addition to short-acting Humalog 5 units with meals. Monitor your glucose with fingerstick prior to meals and first thing in the morning. Diet, regular diabetic diet. Call orthopedic office for increased drainage, redness, increased pain or fever. Go to the emergency room with shortness or chest pain. Please call our office with any concerns and follow up with Dr. Nye in 10 to 14 days. Patient is discharged to home. LESLIE RASHEED [id number]/CPS #: [id number] MTDD
== END 2018-08-21 13:40 | disposition home health service (06) | DRG 483 ==
LOC: AA 05:43 → SSU 09:42
PROVIDERS: ADMIT Orthopaedic Surgery; ATTEND Orthopaedic Surgery
PROC: 0RRJ00Z Replacement of Right Shoulder Joint with Reverse Ball and Socket Synthetic Substitute, Open Approach (ICD-10-PCS; principal; 2018-08-20 07:30)
DX: M19.011 Primary osteoarthritis, right shoulder (principal); N18.4 Chronic kidney disease, stage 4 (severe); Z96.1 Presence of intraocular lens; F32.9 Major depressive disorder, single episode, unspecified; F41.9 Anxiety disorder, unspecified; E78.00 Pure hypercholesterolemia, unspecified; H35.30 Unspecified macular degeneration; M85.80 Other specified disorders of bone density and structure, unspecified site; Z96.612 Presence of left artificial shoulder joint; Z96.653 Presence of artificial knee joint, bilateral; M75.101 Unspecified rotator cuff tear or rupture of right shoulder, not specified as traumatic; E11.65 Type 2 diabetes mellitus with hyperglycemia; I95.9 Hypotension, unspecified; G25.0 Essential tremor; R29.810 Facial weakness; I12.9 Hypertensive chronic kidney disease with stage 1 through stage 4 chronic kidney disease, or unspecified chronic kidney disease; E11.22 Type 2 diabetes mellitus with diabetic chronic kidney disease; I65.23 Occlusion and stenosis of bilateral carotid arteries; K44.9 Diaphragmatic hernia without obstruction or gangrene; E04.1 Nontoxic single thyroid nodule; Z87.891 Personal history of nicotine dependence; Z80.3 Family history of malignant neoplasm of breast; Z83.3 Family history of diabetes mellitus; Z82.0 Family history of epilepsy and other diseases of the nervous system; Z98.42 Cataract extraction status, left eye; Z98.41 Cataract extraction status, right eye; Z79.4 Long term (current) use of insulin; Z79.82 Long term (current) use of aspirin; T88.59XA Other complications of anesthesia, initial encounter; T41.295A Adverse effect of other general anesthetics, initial encounter; Y92.239 Unspecified place in hospital as the place of occurrence of the external cause
CPT/HCPCS: 36415; 70450; 80048; 82947; 83036; 85014; 85018; 85025; 85049; 93880; A9270-GY; C1713; C1776; G8978-GP-CL; G8979-GP-CI; G8987-GO-CK; G8988-GO-CK; G8989-GO-CK; J0330; J0690; J1100; J1240; J1650; J1885; J2250; J2405; J2704; J2795; J3010

== ENCOUNTER 2024-04-23 11:48 | Observation (INO) ==
[2024-04-23 13:14] LABS: ABS Eosinophils 0.1 10^3/uL (0.0-0.5); ABS Lymphocytes 0.8 10^3/uL (1.0-4.8); ABS Monocytes 0.6 10^3/uL (0.0-0.9); ABS Neutrophils 6.7 10^3/uL (1.5-7.6); Eosinophil % 1.2 %; Hematocrit 45.5 % (35-45); Hemoglobin 15.2 g/dL (11.5-14.3); Lymphocyte % 9.3 %; Mean Corpuscular Hemoglobin 29.1 pg (27-33); Mean Corpuscular Hgb Conc 33.4 g/dL (31-36); Mean Corpuscular Volume 87.3 fL (80-97); Mean Platelet Volume 8.6 fL (7.5-11.2); Platelet Count 273 10^3/uL (150-450); Red Blood Count 5.21 10^6/uL (3.63-4.92); Red Cell Distribution Width 14.6 % (12-17); White Blood Count 8.2 10^3/uL (3.8-11.8)
[2024-04-23 13:42] LABS: High Sens Troponin Baseline 1029 pg/mL (<15)
[2024-04-23 13:53] LABS: ALT 34 U/L (7-52); AST 63 U/L (13-39); Albumin 3.9 g/dL (3.2-5.2); Alkaline Phosphatase 152 U/L (35-149); Anion Gap 18 mmol/L (2-16); C Reactive Protein 50.36 mg/L (<8.01); CO2 Carbon Dioxide 39 mmol/L (22-32); Calcium 9.9 mg/dL (8.6-10.3); Chloride 83 mmol/L (101-111); Creatine Kinase 420 U/L (10-223); Creatinine, Serum 3.59 mg/dL (0.51-0.95); Globulin 3.8 g/dL (2-4); Glucose 93 mg/dL (70-100); Lipase 57 U/L (11.0-82.0); Potassium 2.8 mmol/L (3.5-5.0); Sodium 140 mmol/L (135-145); Total Bilirubin 0.9 mg/dL (0.2-1.0); Total Protein 7.7 g/dL (6.4-8.9); eGFR CKD-EPI 11.8 (>60)
[2024-04-23 13:57] LABS: Urine Appearance Clear; Urine Bilirubin Negative (Negative); Urine Blood Negative (Negative); Urine Color Light-Yellow; Urine Glucose Negative (Negative); Urine Ketones Negative (Negative); Urine Nitrite Negative (Negative); Urine Protein Negative (Negative); Urine Specific Gravity 1.016 (1.002-1.030); Urine Urobilinogen Negative (Negative); Urine pH 5.5 (5.0-8.0)
[2024-04-23 14:34] LABS: Blood Urea Nitrogen > 120 mg/dL (6-24)
[2024-04-23 14:39] LABS: High Sensitivity Troponin 1 Hr 995 pg/mL (<15)
[2024-04-23 15:54] LABS: Magnesium 2.8 mg/dL (1.9-2.7)
[2024-04-23] MEDS: Lactated Ringers 1000 ml BAG 1,000 ML IV ONE (17:31)
[2024-04-23] MEDS ORDERED: NS 0.9% 1000 ml BAG 1,000 ML IV ONE (17:39)
[2024-04-23] MEDS ORDERED: Dextrose 50% Syringe 50 ml 25 GM/50 ML SYRINGE IV PUSH PRN (17:41)
[2024-04-23] MEDS ORDERED: NS 0.9% 1000 ml BAG 1,000 ML IV SCH (17:45)
[2024-04-23] MEDS: KCL 10 MEQ/50 ML IVPREMIX 10 MEQ/50 ML BAG IV ONE (17:47)
[2024-04-23] MEDS: Potassium Chlor 20 meq TAB.ER PO ONE (17:47)
[2024-04-23] MEDS: NS 0.9% 1000 ml BAG 1,000 ML IV SCH (19:42)
[2024-04-23] MEDS: NS 0.9% 1000 ml BAG 1,000 ML IV ONE (19:42)
[2024-04-23] MEDS: Heparin 5000 UNITS/ML 1 mL VIAL SUBCUT SCH (23:18)
[2024-04-24 06:40] LABS: Blood Urea Nitrogen > 120 mg/dL (6-24)
[2024-04-24 06:42] LABS: ABS Eosinophils 0.1 10^3/uL (0.0-0.5); ABS Lymphocytes 0.6 10^3/uL (1.0-4.8); ABS Monocytes 0.6 10^3/uL (0.0-0.9); ABS Neutrophils 5.1 10^3/uL (1.5-7.6); ABS Nucleated RBC 0.01 10^3/ul; Hemoglobin 12.8 g/dL (11.5-14.3); Lymphocyte % 9.8 %; Mean Corpuscular Hemoglobin 29.2 pg (27-33); Mean Corpuscular Hgb Conc 32.9 g/dL (31-36); Mean Corpuscular Volume 88.8 fL (80-97); Mean Platelet Volume 8.9 fL (7.5-11.2); Nucleated Red Blood Cells % 0.1 %/100WBC (0.0-0.8); Platelet Count 202 10^3/uL (150-450); Red Blood Count 4.39 10^6/uL (3.63-4.92); Red Cell Distribution Width 14.8 % (12-17); White Blood Count 6.6 10^3/uL (3.8-11.8)
[2024-04-24 07:14] LABS: ALT 29 U/L (7-52); Alkaline Phosphatase 118 U/L (35-149); CO2 Carbon Dioxide 32 mmol/L (22-32); Calcium 8.3 mg/dL (8.6-10.3); Chloride 94 mmol/L (101-111); Glucose 105 mg/dL (70-100); Sodium 140 mmol/L (135-145); Total Bilirubin 0.7 mg/dL (0.2-1.0); eGFR CKD-EPI 18.2 (>60)
[2024-04-24 07:21] LABS: Anion Gap 14 mmol/L (2-16)
[2024-04-24 08:56] LABS: Potassium Redraw 2.4 mmol/L (3.5-5.0)
[2024-04-24] MEDS: KCL 20 MEQ/100 ML IVPREMIX 20 MEQ/100 ML BAG IV SCH ×2 (09:49→18:10)
[2024-04-24] MEDS: Potassium Chlor 20 meq TAB.ER PO ONE (09:49)
[2024-04-24] MEDS: Lidocaine PATCH 5% PATCH TRANSDERM SCH (11:47)
[2024-04-24] MEDS: Potassium Chloride LIQUID 20 MEQ/15 ML LIQUID PO ONE ×3 (12:24→19:03)
[2024-04-24] MEDS: Lactated Ringers 1000 ml BAG 1,000 ML IV ONE (12:24)
[2024-04-24 17:48] LABS: Blood Urea Nitrogen > 120 mg/dL (6-24)
[2024-04-24 17:59] LABS: Anion Gap 11 mmol/L (2-16); CO2 Carbon Dioxide 29 mmol/L (22-32); Calcium 8.5 mg/dL (8.6-10.3); Chloride 95 mmol/L (101-111); Creatinine, Serum 2.28 mg/dL (0.51-0.95); Glucose 180 mg/dL (70-100); Sodium 135 mmol/L (135-145); eGFR CKD-EPI 20.3 (>60)
[2024-04-25 01:59] LABS: Calcium 8.2 mg/dL (8.6-10.3); Creatinine, Serum 2.13 mg/dL (0.51-0.95); Potassium 4.3 mmol/L (3.5-5.0)
[2024-04-25] MEDS: Insulin GLARGINE 100 un/ml 10 ml VIAL SUBCUT ONE (02:23)
[2024-04-25 05:43] LABS: ABS Eosinophils 0.2 10^3/uL (0.0-0.5); ABS Lymphocytes 0.8 10^3/uL (1.0-4.8); ABS Monocytes 0.7 10^3/uL (0.0-0.9); ABS Neutrophils 4.9 10^3/uL (1.5-7.6); ABS Nucleated RBC 0.01 10^3/ul; Eosinophil % 3.1 %; Hematocrit 35.6 % (35-45); Hemoglobin 11.7 g/dL (11.5-14.3); Lymphocyte % 12.3 %; Mean Corpuscular Hemoglobin 28.7 pg (27-33); Mean Corpuscular Hgb Conc 32.8 g/dL (31-36); Mean Corpuscular Volume 87.6 fL (80-97); Mean Platelet Volume 8.3 fL (7.5-11.2); Nucleated Red Blood Cells % 0.1 %/100WBC (0.0-0.8); Platelet Count 225 10^3/uL (150-450); Red Blood Count 4.06 10^6/uL (3.63-4.92); Red Cell Distribution Width 15.2 % (12-17); White Blood Count 6.7 10^3/uL (3.8-11.8)
[2024-04-25 06:26] LABS: Albumin 2.9 g/dL (3.2-5.2); Calcium 8.4 mg/dL (8.6-10.3); Creatinine, Serum 2.04 mg/dL (0.51-0.95); Globulin 2.8 g/dL (2-4); Potassium 3.8 mmol/L (3.5-5.0); Total Bilirubin 0.5 mg/dL (0.2-1.0); Total Protein 5.7 g/dL (6.4-8.9); eGFR CKD-EPI 23.2 (>60)
[2024-04-25] MEDS: Insulin GLARGINE 100 un/ml 10 ml VIAL SUBCUT SCH (22:35)
[2024-04-26 07:46] LABS: Calcium 8.6 mg/dL (8.6-10.3); Creatinine, Serum 1.84 mg/dL (0.51-0.95); Magnesium 2.3 mg/dL (1.9-2.7); Phosphorus 1.9 mg/dL (2.5-5.0); Potassium 3.7 mmol/L (3.5-5.0); eGFR CKD-EPI 26.2 (>60)
[2024-04-26] MEDS: Aspirin EC 81 mg TAB.EC (enteric coated) PO SCH (10:44)
[2024-04-26] MEDS: Insulin GLARGINE 100 un/ml 10 ml VIAL SUBCUT SCH (20:29)
[2024-04-27 07:00] LABS: Calcium 8.5 mg/dL (8.6-10.3); Creatinine, Serum 1.78 mg/dL (0.51-0.95); eGFR CKD-EPI 27.3 (>60)
[2024-04-27] MEDS: Potassium Chloride LIQUID 20 MEQ/15 ML LIQUID PO SCH (12:50)
[2024-04-27 16:53] LABS: Rapid COVID-19 Molecular Undetected (Undetected)
[2024-04-28 10:23] VITALS: BP 110/57
== END 2024-04-28 12:58 ==
LOC: ED 11:48 → EDHOLD 11:48 → SUATTDRO 16:24 → EDHOLD 20:39 → MEDTELE 21:20
PROVIDERS: ADMIT Internal Medicine; ATTEND Student in an Organized Health Care Education/Training Program

== ENCOUNTER 2024-04-29 14:48 | Observation (INO) ==
[2024-04-29 15:34] LABS: ABS Basophils 0.1 10^3/uL (0.0-0.1); ABS Lymphocytes 1.1 10^3/uL (1.0-4.8); ABS Monocytes 0.6 10^3/uL (0.0-0.9); ABS Neutrophils 6.8 10^3/uL (1.5-7.6); ABS Nucleated RBC 0.02 10^3/ul; Hemoglobin 9.5 g/dL (11.5-14.3); Lymphocyte % 13.3 %; Mean Corpuscular Hemoglobin 29.3 pg (27-33); Mean Corpuscular Hgb Conc 32.9 g/dL (31-36); Mean Corpuscular Volume 89.2 fL (80-97); Mean Platelet Volume 9.1 fL (7.5-11.2); Nucleated Red Blood Cells % 0.2 %/100WBC (0.0-0.8); Platelet Count 260 10^3/uL (150-450); Red Blood Count 3.25 10^6/uL (3.63-4.92); Red Cell Distribution Width 15.7 % (12-17); White Blood Count 8.6 10^3/uL (3.8-11.8)
[2024-04-29 15:46] LABS: INR 1.05 (0.85-1.14)
[2024-04-29] MEDS: Pantoprazole VIAL 40 MG VIAL IV ONE (16:08)
[2024-04-29] MEDS: Acetaminophen IV 1 GM/100ML 1,000 MG/100 ML BAG IV ONE (16:44)
[2024-04-29 17:01] LABS: ALT 61 U/L (7-52); Albumin 3.2 g/dL (3.2-5.2); Alkaline Phosphatase 133 U/L (35-149); CO2 Carbon Dioxide 29 mmol/L (22-32); Calcium 9.4 mg/dL (8.6-10.3); Chloride 102 mmol/L (101-111); Creatinine, Serum 2.28 mg/dL (0.51-0.95); Globulin 3.1 g/dL (2-4); Glucose 354 mg/dL (70-100); Sodium 141 mmol/L (135-145); Total Bilirubin 0.7 mg/dL (0.2-1.0); Total Protein 6.3 g/dL (6.4-8.9); eGFR CKD-EPI 20.3 (>60)
[2024-04-29 17:07] LABS: Blood Urea Nitrogen > 120 mg/dL (6-24)
[2024-04-29 17:52] LABS: AST 80 U/L (13-39); Anion Gap 10 mmol/L (2-16); Potassium 4.9 mmol/L (3.5-5.0)
[2024-04-29] MEDS ORDERED: Dextrose 50% Syringe 50 ml 25 GM/50 ML SYRINGE IV PUSH PRN (18:20)
[2024-04-29] MEDS: Lactated Ringers 1000 ml BAG 1,000 ML IV ONE (18:25)
[2024-04-29] MEDS: Lidocaine PATCH 5% PATCH TRANSDERM SCH (20:19)
[2024-04-29 20:27] LABS: ABS Lymphocytes 1.4 10^3/uL (1.0-4.8); ABS Monocytes 0.6 10^3/uL (0.0-0.9); ABS Neutrophils 7.3 10^3/uL (1.5-7.6); ABS Nucleated RBC 0.01 10^3/ul; Hematocrit 25.4 % (35-45); Hemoglobin 8.5 g/dL (11.5-14.3); Lymphocyte % 15.4 %; Mean Corpuscular Hgb Conc 33.2 g/dL (31-36); Mean Corpuscular Volume 90.3 fL (80-97); Mean Platelet Volume 8.9 fL (7.5-11.2); Nucleated Red Blood Cells % 0.1 %/100WBC (0.0-0.8); Platelet Count 230 10^3/uL (150-450); Red Blood Count 2.82 10^6/uL (3.63-4.92); Red Cell Distribution Width 15.5 % (12-17); White Blood Count 9.3 10^3/uL (3.8-11.8)
[2024-04-29 21:25] LABS: Urine Appearance Turbid; Urine Bilirubin Negative (Negative); Urine Blood 1+ (Negative); Urine Color Light-Yellow; Urine Glucose Trace (Negative); Urine Ketones Negative (Negative); Urine Nitrite Negative (Negative); Urine Protein Negative (Negative); Urine Specific Gravity 1.018 (1.002-1.030); Urine Urobilinogen Negative (Negative)
[2024-04-29 21:46] LABS: Urine Bacteria Absent /HPF (Absent); Urine Red Blood Cell 1+(3-5/hpf) /HPF (0-Trace); Urine Squamous Epithelial Cell Present /HPF (Absent); Urine Transitional Epithelial Present /HPF (Absent); Urine White Blood Cell 3+(>20/hpf) /HPF (0-Trace)
[2024-04-29] MEDS: Lactated Ringers 1000 ml BAG 1,000 ML IV SCH (22:10)
[2024-04-29] MEDS: Insulin GLARGINE 100 un/ml 10 ml VIAL SUBCUT SCH (22:35)
[2024-04-29] MEDS: Pantoprazole VIAL 40 MG VIAL IV SCH (22:42)
[2024-04-29 23:05] LABS: Glucose Confirmatory 413 mg/dL (70-100)
[2024-04-30 03:51] LABS: ABS Basophils 0.1 10^3/uL (0.0-0.1); ABS Lymphocytes 1.5 10^3/uL (1.0-4.8); ABS Monocytes 0.9 10^3/uL (0.0-0.9); ABS Neutrophils 8.7 10^3/uL (1.5-7.6); ABS Nucleated RBC 0.03 10^3/ul; Eosinophil % 0.1 %; Hematocrit 22.7 % (35-45); Hemoglobin 7.5 g/dL (11.5-14.3); Lymphocyte % 13.1 %; Mean Corpuscular Hemoglobin 29.4 pg (27-33); Mean Corpuscular Volume 89.1 fL (80-97); Mean Platelet Volume 8.8 fL (7.5-11.2); Nucleated Red Blood Cells % 0.2 %/100WBC (0.0-0.8); Platelet Count 206 10^3/uL (150-450); Red Blood Count 2.55 10^6/uL (3.63-4.92); Red Cell Distribution Width 15.5 % (12-17); White Blood Count 11.2 10^3/uL (3.8-11.8)
[2024-04-30 04:19] LABS: ALT 52 U/L (7-52); AST 60 U/L (13-39); Albumin 2.8 g/dL (3.2-5.2); Albumin/Globulin Ratio 1.1 (1-3); Alkaline Phosphatase 112 U/L (35-149); Anion Gap 12 mmol/L (2-16); CO2 Carbon Dioxide 26 mmol/L (22-32); Calcium 8.8 mg/dL (8.6-10.3); Chloride 104 mmol/L (101-111); Creatinine, Serum 2.59 mg/dL (0.51-0.95); Globulin 2.5 g/dL (2-4); Glucose 307 mg/dL (70-100); Magnesium 2.3 mg/dL (1.9-2.7); Potassium 4.9 mmol/L (3.5-5.0); Sodium 142 mmol/L (135-145); Total Bilirubin 0.5 mg/dL (0.2-1.0); Total Protein 5.3 g/dL (6.4-8.9); eGFR CKD-EPI 17.4 (>60)
[2024-04-30 04:32] LABS: Blood Urea Nitrogen > 120 mg/dL (6-24)
[2024-04-30] MEDS ORDERED: Dextrose 50% Syringe 50 ml 25 GM/50 ML SYRINGE IV PUSH PRN (09:01)
[2024-04-30 15:07] LABS: Hematocrit 27.8 % (35-45); Hemoglobin 9.3 g/dL (11.5-14.3)
[2024-04-30] MEDS ORDERED: Midazolam 5 mg/5 ml VIAL 1 mg/ml 5 ml VIAL (5 mg) ONE (16:07)
[2024-04-30] MEDS ORDERED: fentaNYL 100 mcg/2 ml 50 MCG/ML VIAL ONE (16:08)
[2024-04-30 22:04] LABS: Hemoglobin 8.8 g/dL (11.5-14.3)
[2024-05-01 06:27] LABS: ABS Eosinophils 0.1 10^3/uL (0.0-0.5); ABS Lymphocytes 1.1 10^3/uL (1.0-4.8); ABS Monocytes 0.4 10^3/uL (0.0-0.9); ABS Neutrophils 6.3 10^3/uL (1.5-7.6); ABS Nucleated RBC 0.02 10^3/ul; Eosinophil % 1.8 %; Hematocrit 26.9 % (35-45); Hemoglobin 8.8 g/dL (11.5-14.3); Lymphocyte % 13.5 %; Mean Corpuscular Hemoglobin 28.8 pg (27-33); Mean Corpuscular Hgb Conc 32.6 g/dL (31-36); Mean Corpuscular Volume 88.4 fL (80-97); Mean Platelet Volume 8.6 fL (7.5-11.2); Nucleated Red Blood Cells % 0.2 %/100WBC (0.0-0.8); Platelet Count 190 10^3/uL (150-450); Red Blood Count 3.05 10^6/uL (3.63-4.92); Red Cell Distribution Width 15.6 % (12-17)
[2024-05-01 07:06] LABS: Calcium 9.1 mg/dL (8.6-10.3); Creatinine, Serum 2.2 mg/dL (0.51-0.95); eGFR CKD-EPI 21.2 (>60)
[2024-05-01] MEDS: Polyethylene Glycol 3350 17 GM PACKET PO SCH (18:21)
[2024-05-01] MEDS: Senna TAB 8.6 mg TAB PO SCH (20:37)
[2024-05-02 15:18] LABS: Hematocrit 29.3 % (35-45); Hemoglobin 9.7 g/dL (11.5-14.3)
[2024-05-04 06:14] LABS: ABS Eosinophils 0.2 10^3/uL (0.0-0.5); ABS Lymphocytes 1.3 10^3/uL (1.0-4.8); ABS Monocytes 0.5 10^3/uL (0.0-0.9); ABS Neutrophils 3.8 10^3/uL (1.5-7.6); Hematocrit 25.8 % (35-45); Hemoglobin 8.8 g/dL (11.5-14.3); Lymphocyte % 23.1 %; Mean Corpuscular Hemoglobin 30.2 pg (27-33); Mean Corpuscular Hgb Conc 34.1 g/dL (31-36); Mean Corpuscular Volume 88.7 fL (80-97); Mean Platelet Volume 8.4 fL (7.5-11.2); Platelet Count 213 10^3/uL (150-450); Red Blood Count 2.91 10^6/uL (3.63-4.92); Red Cell Distribution Width 15.7 % (12-17); White Blood Count 5.8 10^3/uL (3.8-11.8)
[2024-05-04 06:56] LABS: Calcium 8.7 mg/dL (8.6-10.3); Creatinine, Serum 2.02 mg/dL (0.51-0.95); Magnesium 1.9 mg/dL (1.9-2.7); Phosphorus 3.9 mg/dL (2.5-5.0); Potassium 3.4 mmol/L (3.5-5.0); eGFR CKD-EPI 23.5 (>60)
[2024-05-04 09:49] VITALS: BP 117/58
[2024-05-04 11:07] LABS: Rapid COVID-19 Molecular Undetected (Undetected)
== END 2024-05-04 12:25 ==
LOC: EDHOLD 14:48 → ED 14:48 → MED 16:55 → SUATTDRO 16:55 → MED 20:02
PROVIDERS: ADMIT Internal Medicine; ATTEND Internal Medicine

== ENCOUNTER 2024-06-30 13:37 | Inpatient (IN) ==
[2024-06-30 14:08] LABS: ABS Lymphocytes 0.5 10^3/uL (1.0-4.8); ABS Monocytes 0.9 10^3/uL (0.0-0.9); Hematocrit 36.1 % (35-45); Hemoglobin 12.4 g/dL (11.5-14.3); Lymphocyte % 3.5 %; Mean Corpuscular Hemoglobin 29.8 pg (27-33); Mean Corpuscular Hgb Conc 34.4 g/dL (31-36); Mean Corpuscular Volume 86.6 fL (80-97); Mean Platelet Volume 8.5 fL (7.5-11.2); Platelet Count 339 10^3/uL (150-450); Red Blood Count 4.16 10^6/uL (3.63-4.92); Red Cell Distribution Width 15.9 % (12-17); White Blood Count 13.4 10^3/uL (3.8-11.8)
[2024-06-30 14:22] LABS: Urine Appearance Clear; Urine Bilirubin Negative (Negative); Urine Blood Negative (Negative); Urine Color Yellow; Urine Glucose Negative (Negative); Urine Ketones Negative (Negative); Urine Nitrite Negative (Negative); Urine Protein Negative (Negative); Urine Specific Gravity 1.011 (1.002-1.030); Urine Urobilinogen Negative (Negative); Urine pH 5.5 (5.0-8.0)
[2024-06-30] MEDS: Lactated Ringers 1000 ml BAG IV.FLUID IV ONE (14:24)
[2024-06-30 14:25] LABS: Urine Bacteria 1+ /HPF (Absent); Urine Red Blood Cell Trace(0-2/hpf) /HPF (0-Trace); Urine Squamous Epithelial Cell Present /HPF (Absent); Urine White Blood Cell 3+(>20/hpf) /HPF (0-Trace)
[2024-06-30 14:34] LABS: High Sens Troponin Baseline 1259 pg/mL (<15)
[2024-06-30 14:47] LABS: Blood Urea Nitrogen > 120 mg/dL (6-24)
[2024-06-30 14:48] LABS: ALT 14 U/L (7-52); AST 26 U/L (13-39); Albumin 3.4 g/dL (3.5-5.7); Albumin/Globulin Ratio 0.8 (1-3); Alkaline Phosphatase 165 U/L (35-149); Anion Gap 19 mmol/L (2-16); C Reactive Protein 285.74 mg/L (<8.01); CO2 Carbon Dioxide 36 mmol/L (22-32); Calcium 9.9 mg/dL (8.6-10.3); Chloride 83 mmol/L (101-111); Creatinine, Serum 5.93 mg/dL (0.51-0.95); Globulin 4.3 g/dL (2-4); Glucose 329 mg/dL (70-100); Magnesium 2.8 mg/dL (1.9-2.7); Phosphorus 4.6 mg/dL (2.5-5.0); Potassium 3.5 mmol/L (3.5-5.0); Sodium 138 mmol/L (135-145); Total Bilirubin 1.3 mg/dL (0.2-1.0); Total Protein 7.7 g/dL (6.4-8.9); eGFR CKD-EPI 6.4 (>60)
[2024-06-30] MEDS: cefTRIAXone 1 gm/50 mL D5W 1 GM/50 ML BAG IV ONE (15:11)
[2024-06-30 16:11] LABS: High Sensitivity Troponin 1 Hr 941 pg/mL (<15)
[2024-06-30] MEDS: NS 0.9% 1000 ml BAG 1,000 ML IV SCH (17:20)
[2024-06-30] MEDS ORDERED: Senna TAB 8.6 mg TAB PO PRN (17:36)
[2024-06-30] MEDS ORDERED: Dextrose 50% Syringe 50 ml 25 GM/50 ML SYRINGE IV PUSH PRN (18:53)
[2024-06-30] MEDS: Enoxaparin 30 MG/0.3 ML SYR SUBCUT SCH (19:26)
[2024-07-01 05:43] LABS: ABS Eosinophils 0.1 10^3/uL (0.0-0.5); ABS Lymphocytes 0.3 10^3/uL (1.0-4.8); ABS Monocytes 0.7 10^3/uL (0.0-0.9); Eosinophil % 0.7 %; Hematocrit 30.5 % (35-45); Hemoglobin 10.1 g/dL (11.5-14.3); Lymphocyte % 3.1 %; Mean Corpuscular Hemoglobin 28.8 pg (27-33); Mean Corpuscular Hgb Conc 33.2 g/dL (31-36); Mean Corpuscular Volume 86.7 fL (80-97); Mean Platelet Volume 8.7 fL (7.5-11.2); Platelet Count 267 10^3/uL (150-450); Red Blood Count 3.51 10^6/uL (3.63-4.92); White Blood Count 9.1 10^3/uL (3.8-11.8)
[2024-07-01 06:29] LABS: Creatinine, Serum 4.28 mg/dL (0.51-0.95); Magnesium 2.3 mg/dL (1.9-2.7); eGFR CKD-EPI 9.5 (>60)
[2024-07-01 06:30] LABS: Anion Gap 14 mmol/L (2-16); CO2 Carbon Dioxide 33 mmol/L (22-32); Calcium 8.2 mg/dL (8.6-10.3); Chloride 93 mmol/L (101-111); Glucose 343 mg/dL (70-100); Potassium 2.8 mmol/L (3.5-5.0); Sodium 140 mmol/L (135-145)
[2024-07-01 06:31] LABS: Blood Urea Nitrogen > 120 mg/dL (6-24)
[2024-07-01] MEDS: Potassium Chloride LIQUID 20 MEQ/15 ML LIQUID PO ONE ×2 (08:31→12:02)
[2024-07-01] MEDS ORDERED: Potassium Chloride LIQUID 20 MEQ/15 ML LIQUID PO SCH (09:00)
[2024-07-01] MEDS: Linezolid 600 MG IVPREMIX(*) 600 MG/300 ML BAG IVPB SCH (09:46)
[2024-07-01] MEDS: KCL 10 MEQ/50 ML IVPREMIX 10 MEQ/50 ML BAG IV SCH (10:50)
[2024-07-01] MEDS ORDERED: Sulfur Hexaflouride MICROSPHR 25 MG VIAL IV PRN (11:34)
[2024-07-01] MEDS ORDERED: cefTRIAXone 1 gm/50 mL D5W 1 GM/50 ML BAG IV SCH (14:00)
[2024-07-01 16:50] LABS: Blood Urea Nitrogen > 120 mg/dL (6-24)
[2024-07-01 16:51] LABS: Anion Gap 11 mmol/L (2-16); CO2 Carbon Dioxide 32 mmol/L (22-32); Calcium 8.3 mg/dL (8.6-10.3); Chloride 100 mmol/L (101-111); Glucose 106 mg/dL (70-100); Potassium 3.2 mmol/L (3.5-5.0); Sodium 143 mmol/L (135-145)
[2024-07-01 16:52] LABS: Magnesium 2.2 mg/dL (1.9-2.7); eGFR CKD-EPI 11.7 (>60)
[2024-07-01] MEDS: Potassium Chloride LIQUID 20 MEQ/15 ML LIQUID PO SCH (19:42)
[2024-07-02 06:08] LABS: ABS Eosinophils 0.2 10^3/uL (0.0-0.5); ABS Lymphocytes 0.4 10^3/uL (1.0-4.8); ABS Monocytes 0.6 10^3/uL (0.0-0.9); ABS Neutrophils 5.7 10^3/uL (1.5-7.6); Eosinophil % 2.5 %; Hematocrit 29.2 % (35-45); Hemoglobin 9.6 g/dL (11.5-14.3); Lymphocyte % 5.3 %; Mean Corpuscular Hgb Conc 32.9 g/dL (31-36); Mean Corpuscular Volume 88.1 fL (80-97); Mean Platelet Volume 8.4 fL (7.5-11.2); Platelet Count 269 10^3/uL (150-450); Red Blood Count 3.31 10^6/uL (3.63-4.92); Red Cell Distribution Width 15.9 % (12-17); White Blood Count 6.9 10^3/uL (3.8-11.8)
[2024-07-02 06:44] LABS: Calcium 8.2 mg/dL (8.6-10.3); Creatinine, Serum 3.11 mg/dL (0.51-0.95); Potassium 4.5 mmol/L (3.5-5.0)
[2024-07-02] MEDS: Lidocaine 4% CREAM (LMX) 5 GM TUBE TOPICAL SCH (07:53)
[2024-07-02 08:45] LABS: Glucose Confirmatory 423 mg/dL (70-100)
[2024-07-02] MEDS: Insulin GLARGINE 100 un/ml 10 ml VIAL SUBCUT SCH (10:22)
[2024-07-02] MEDS: NS 0.9% 1000 ml BAG 1,000 ML IV SCH (10:25)
[2024-07-02 11:13] LABS: Ferritin 250.8 ng/mL (11-307)
[2024-07-02 11:17] LABS: Folate 8.22 ng/mL (5.90-24.80)
[2024-07-02] MEDS: Nystatin TOP POWDER 15 GM BTL TOPICAL SCH (14:01)
[2024-07-02] MEDS: Ampicillin ADVAN 2 GM in NS 0.9% 100 ml BAG 100 ML IVPB SCH (14:32)
[2024-07-03 06:21] LABS: ABS Eosinophils 0.4 10^3/uL (0.0-0.5); ABS Lymphocytes 0.7 10^3/uL (1.0-4.8); ABS Monocytes 0.5 10^3/uL (0.0-0.9); ABS Neutrophils 4.4 10^3/uL (1.5-7.6); Eosinophil % 6.8 %; Hematocrit 29.4 % (35-45); Hemoglobin 9.6 g/dL (11.5-14.3); Mean Corpuscular Hemoglobin 29.1 pg (27-33); Mean Corpuscular Hgb Conc 32.7 g/dL (31-36); Mean Platelet Volume 8.4 fL (7.5-11.2); Platelet Count 239 10^3/uL (150-450); Red Cell Distribution Width 16.2 % (12-17)
[2024-07-03 06:50] LABS: Calcium 7.9 mg/dL (8.6-10.3); Creatinine, Serum 2.22 mg/dL (0.51-0.95); Magnesium 1.8 mg/dL (1.9-2.7); Potassium 3.8 mmol/L (3.5-5.0); eGFR CKD-EPI 20.9 (>60)
[2024-07-03] MEDS: Magnesium Sulfate IV 1GM/100ML 1 GM/100 ML BAG IV ONE (08:07)
[2024-07-03 12:38] LABS: Urine Appearance Clear; Urine Bilirubin Negative (Negative); Urine Blood 2+ (Negative); Urine Color Light-Yellow; Urine Glucose 1+ (>=70 mg/dL) (Negative); Urine Ketones Negative (Negative); Urine Nitrite Negative (Negative); Urine Protein Negative (Negative); Urine Specific Gravity 1.012 (1.002-1.030); Urine Urobilinogen Negative (Negative)
[2024-07-03 12:41] LABS: Urine Bacteria Absent /HPF (Absent); Urine Red Blood Cell 3+(>10/hpf) /HPF (0-Trace); Urine White Blood Cell Trace(0-5/hpf) /HPF (0-Trace)
[2024-07-03 14:26] LABS: Rapid COVID-19 Molecular Undetected (Undetected)
[2024-07-04 06:19] LABS: ABS Eosinophils 0.4 10^3/uL (0.0-0.5); ABS Lymphocytes 0.9 10^3/uL (1.0-4.8); ABS Monocytes 0.4 10^3/uL (0.0-0.9); Eosinophil % 7.8 %; Hematocrit 30.1 % (35-45); Hemoglobin 9.9 g/dL (11.5-14.3); Mean Corpuscular Volume 87.8 fL (80-97); Mean Platelet Volume 8.5 fL (7.5-11.2); Platelet Count 240 10^3/uL (150-450); Red Blood Count 3.43 10^6/uL (3.63-4.92); Red Cell Distribution Width 16.1 % (12-17); White Blood Count 5.7 10^3/uL (3.8-11.8)
[2024-07-04 06:41] LABS: Calcium 8.1 mg/dL (8.6-10.3); Creatinine, Serum 1.91 mg/dL (0.51-0.95); Magnesium 1.9 mg/dL (1.9-2.7); eGFR CKD-EPI 25.1 (>60)
[2024-07-04] MEDS: Morphine 2 MG/ML SYRINGE IV PRN (16:43)
[2024-07-05 05:31] LABS: ABS Eosinophils 0.4 10^3/uL (0.0-0.5); ABS Lymphocytes 0.9 10^3/uL (1.0-4.8); ABS Monocytes 0.4 10^3/uL (0.0-0.9); ABS Neutrophils 3.4 10^3/uL (1.5-7.6); Eosinophil % 7.7 %; Hemoglobin 9.6 g/dL (11.5-14.3); Lymphocyte % 17.7 %; Mean Corpuscular Hgb Conc 33.1 g/dL (31-36); Mean Corpuscular Volume 87.6 fL (80-97); Mean Platelet Volume 8.1 fL (7.5-11.2); Platelet Count 233 10^3/uL (150-450); Red Blood Count 3.31 10^6/uL (3.63-4.92); Red Cell Distribution Width 16.2 % (12-17); White Blood Count 5.2 10^3/uL (3.8-11.8)
[2024-07-05 06:30] LABS: Calcium 8.3 mg/dL (8.6-10.3); Creatinine, Serum 1.69 mg/dL (0.51-0.95); Magnesium 1.7 mg/dL (1.9-2.7); Potassium 3.7 mmol/L (3.5-5.0)
[2024-07-05] MEDS: Magnesium Sulfate IV 1GM/100ML 1 GM/100 ML BAG IV ONE (10:02)
[2024-07-05] MEDS: Insulin GLARGINE 100 un/ml 10 ml VIAL SUBCUT ONE (12:33)
[2024-07-06 06:24] LABS: ABS Eosinophils 0.3 10^3/uL (0.0-0.5); ABS Lymphocytes 1.1 10^3/uL (1.0-4.8); ABS Monocytes 0.5 10^3/uL (0.0-0.9); ABS Neutrophils 5.4 10^3/uL (1.5-7.6); ABS Nucleated RBC 0.01 10^3/ul; Eosinophil % 4.4 %; Hematocrit 27.6 % (35-45); Hemoglobin 9.5 g/dL (11.5-14.3); Lymphocyte % 14.6 %; Mean Corpuscular Hgb Conc 34.3 g/dL (31-36); Mean Corpuscular Volume 87.4 fL (80-97); Mean Platelet Volume 7.9 fL (7.5-11.2); Nucleated Red Blood Cells % 0.1 %/100WBC (0.0-0.8); Platelet Count 210 10^3/uL (150-450); Red Blood Count 3.15 10^6/uL (3.63-4.92); Red Cell Distribution Width 16.6 % (12-17); White Blood Count 7.4 10^3/uL (3.8-11.8)
[2024-07-06 06:41] LABS: Calcium 7.9 mg/dL (8.6-10.3); Creatinine, Serum 1.58 mg/dL (0.51-0.95); Magnesium 1.9 mg/dL (1.9-2.7); Potassium 3.8 mmol/L (3.5-5.0); eGFR CKD-EPI 31.5 (>60)
[2024-07-06] MEDS ORDERED: D5W 500 ml BAG 500 ML IV SCH (11:00)
[2024-07-06] MEDS: D5W 500 ml BAG 500 ML IV SCH ×2 (12:00→20:18)
[2024-07-06 15:45] LABS: Calcium 7.7 mg/dL (8.6-10.3); Creatinine, Serum 1.6 mg/dL (0.51-0.95); Potassium 4.1 mmol/L (3.5-5.0)
[2024-07-07 06:30] LABS: Anion Gap 8 mmol/L (2-16); Blood Urea Nitrogen 34 mg/dL (6-24); CO2 Carbon Dioxide 28 mmol/L (22-32); Calcium 7.7 mg/dL (8.6-10.3); Chloride 106 mmol/L (101-111); Creatinine, Serum 1.62 mg/dL (0.51-0.95); Glucose 182 mg/dL (70-100); Sodium 142 mmol/L (135-145); eGFR CKD-EPI 30.6 (>60)
[2024-07-07 06:44] LABS: Potassium, Whole Blood 4.7 mmol/L (3.4-4.5)
[2024-07-07] MEDS: Benzocaine/Menthol LOZ PO PRN (15:40)
[2024-07-08 09:11] LABS: Rapid COVID-19 Molecular Undetected (Undetected)
[2024-07-08 09:47] VITALS: BP 118/74
== END 2024-07-08 12:00 | DRG 683 ==
LOC: EDHOLD 13:37 → ED 13:37 → SUATTDRO 17:36 → MED 20:28 → SUATTDRO 07-01 10:00
PROVIDERS: ADMIT Student in an Organized Health Care Education/Training Program; ATTEND Hospitalist